=== PATIENT | female | born 1945 | race Caucasian/White ===

== ENCOUNTER 2017-05-09 13:19 | Inpatient (IN) | payer MEDICARE, OTHER ==
[2017-05-09] VITALS (10 sets, daily range): BP systolic 94–137; BP diastolic 54–74; PULSE 70–84; RESP 16–20; TEMP 98.1–98.3; O2SAT 90–98
[~2017-05-09 13:19] MED LIST: CARV12.5 PO; CIPR500T4 PO; COUM10TA PO; ENOX40P SC; LORA10TA PO; PROT40TA PO; RAMI5CAP36 PO
[2017-05-09] MEDS ORDERED: CARV12.5 PO (13:33)
[2017-05-09] MEDS ORDERED: WARF-60 PO (13:33)
[2017-05-09] MEDS ORDERED: ASPI-516 CHEW (13:33)
[2017-05-09] MEDS ORDERED: PANT40TA3 PO (13:33)
[2017-05-09] MEDS ORDERED: RAMI5CAP PO (13:33)
[2017-05-09] MEDS ORDERED: SODIUM CHLORIDE 0.9% FLUSH 10 ML FLUSH IVF PRN (13:45)
[2017-05-09 14:03] LABS: POTASSIUM 4.2 MEQ/L (3.5-5.1)
[2017-05-09 14:07] LABS: MAGNESIUM 1.7 MG/DL (1.5-2.5)
[2017-05-09 14:11] LABS: INTERNATIONAL NORMALIZED RATIO 2.8 RATIO; PROTHROMBIN TIME - PATIENT 27.9 SEC (9.8-11.6)
--- NOTE | 2017-05-09 14:11 | RADRPT ---
EXAM DATE/TIME: 05/09/2017 13:49 [facility] COMPARISON: No previous studies available for comparison. INDICATIONS : Chest pain MEDICAL HISTORY : Congestive heart failure. Hypertension AFib SURGICAL HISTORY : CABG. Pacemaker. ENCOUNTER: Initial ACUITY: 1 day PAIN SCORE: 4/10 LOCATION: Bilateral chest FINDINGS: A single view of the chest demonstrates cardiomegaly with interstitial densities. Increased pulmonary vascularity. There is obscuration left lower lobe. Previous median sternotomy. Left-sided pacemaker with intact leads. The cardiomediastinal contours are unremarkable. Osseous structures are intact. CONCLUSION: 1. Cardiomegaly with minimal interstitial disease. 2. Status post median sternotomy. 3. Left-sided pacemaker Dick Ahuja MD on May 09, 2017 at 14:08 Board Certified Radiologist. This report was verified electronically.
--- NOTE | 2017-05-09 14:22 | PD ---
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 fib status post multiple ablations, currently on Coumadin, pacemaker, previous CVA, previous episodes of splenic bleeding, bleeding complications related to Coumadin, hysterectomy, presents to the ER today because she states that over last few days she has noticed discomfort and swelling in the left neck area, states that her veins feel swollen. She admits she has had some orthopnea and dyspnea on exertion. She denies any new chest pains, fevers, or any other issues. She was seen by Dr. Howell recently, is here because of concerns over the left neck swelling. She denies any trouble talking, swallowing, or other issues. Modifying Factors: None Associated Signs & Symptoms: Left neck swelling, swollen vein, dyspnea on exertion Risk Factors: Extensive cardiac history PFSH Past Medical History Arthritis: Yes Atrial Fibrillation: Yes Anxiety: Yes (D/T ILLNESS HISTORY) Depression: Yes ("SOMETIMES") Cancer: No Cardiovascular Problems: Yes (A FIB, CHF) Chemotherapy: No Chest Pain: No Cerebrovascular Accident: Yes Diabetes: No Endocrine: No Gastrointestinal Disorders: No GERD: Yes (RECENT DX: KNUTSON'S ESOPHAGUS) Glaucoma: No Genitourinary: No Hepatitis: No Hiatal Hernia: No Hypertension: Yes Immune Disorder: No Medical other: Yes (EYE PROBLEMS(RETINA) AFTER FALLING POST OP, KNUTSON'S ESOPHAGUS, GASTRITIS) Musculoskeletal: Yes Neurologic: Yes Psychiatric: No Reproductive: No Respiratory: No Integumentary: No Migraines: Yes (OCCULAR MIGRAINES) Radiation Therapy: No Thyroid Disease: No Past Surgical History Abdominal Surgery: Yes (SPLENECTOMY 1975) AICD: Yes Cardiac Surgery: Yes (HEART VALVE REPLACEMENT 1975,CARDIAC ABLATION, PACER/ DEFIB) Coronary Artery Bypass Graft: Yes (X3 WITH VALVE REPLACEMENTS) Gynecologic Surgery: Yes (HYSTERECTOMY) Hysterectomy: Yes Oral Surgery: Yes (T & A) Pacemaker: Yes Other Surgery: Yes (SPLENECTOMY) Social History Alcohol Use: No (wine with dinner) Tobacco Use: No Substance Use: No Allergies-Medications (Allergen,Severity, Reaction): Coded Allergies: Sulfa (Sulfonamide Antibiotics) (Unverified Allergy, Severe, Shortness of Breath, 05/09/17) Reported Meds & Prescriptions Reported Meds & Active Scripts Active Reported Aspirin 81 Mg Chew 81 Mg CHEW DAILY Coreg (Carvedilol) 12.5 Mg Tab 12.5 Mg PO BID Pantoprazole (Pantoprazole Sodium) 40 Mg Tab 40 Mg PO DAILY Ramipril 5 Mg Cap 5 Mg PO DAILY Warfarin 6 Mg Tab 6 Mg PO DAILY Review of Systems Except as stated in HPI: all other systems reviewed are Neg Physical Exam Narrative GENERAL: Well-developed elderly white female patient currently in mild respiratory distress. Awake and oriented 3. SKIN: Focused skin assessment warm/dry. HEAD: Atraumatic. Normocephalic. EYES: Pupils equal and round. No scleral icterus. No injection or drainage. ENT: No nasal bleeding or discharge. Mucous membranes pink and moist. NECK: Trachea midline. No palpable soft tissue mass or areas of tenderness in the left neck. I do note a significant JVD. CARDIOVASCULAR: Regular rate and rhythm. No murmur appreciated. RESPIRATORY: No accessory muscle use. Clear to auscultation. Breath sounds equal bilaterally. GASTROINTESTINAL: Abdomen soft, non-tender, nondistended. Hepatic and splenic margins not palpable. MUSCULOSKELETAL: No obvious deformities. No clubbing. No cyanosis. No edema. NEUROLOGICAL: Awake and alert. No obvious cranial nerve deficits. Motor grossly within normal limits. Normal speech. PSYCHIATRIC: Appropriate mood and affect; insight and judgment normal. Data Data Last Documented VS Vital Signs Date Time Temp Pulse Resp B/P (MAP) Pulse Ox O2 Delivery O2 Flow Rate FiO2 05/09/17 14:53 70 20 98/62 (74) 96 05/09/17 14:01 2.00 05/09/17 13:47 Nasal Cannula 05/09/17 13:28 98.1 Orders Orders Electrocardiogram (05/09/17 13:45) Basic Metabolic Panel (Bmp) (05/09/17 13:45) B-Type Natriuretic Peptide (05/09/17 13:45) Ckmb (Isoenzyme) Profile (05/09/17 13:45) Complete Blood Count With Diff (05/09/17 13:45) Magnesium (Mg) (05/09/17 13:45) Prothrombin Time / Inr (Pt) (05/09/17 13:45) Act Partial Throm Time (Ptt) (05/09/17 13:45) Troponin I (05/09/17 13:45) Chest, Single Ap (05/09/17 13:45) Ecg Monitoring (05/09/17 13:45) Bilateral Bp Monitoring (05/09/17 13:45) Iv Access Insert/Monitor (05/09/17 13:45) Oximetry (05/09/17 13:45) Oxygen Administration (05/09/17 13:45) Sodium Chloride 0.9% Flush (Ns Flush) (05/09/17 13:45) Us Soft Tissue Neck (05/09/17 ) Furosemide Inj (Lasix Inj) (05/09/17 15:15) Labs Laboratory Tests Test 05/09/17 13:45 White Blood Count 4.7 TH/MM3 Red Blood Count 4.50 MIL/MM3 Hemoglobin 14.5 GM/DL Hematocrit 44.3 % Mean Corpuscular Volume 98.3 FL Mean Corpuscular Hemoglobin 32.3 PG Mean Corpuscular Hemoglobin Concent 32.8 % Red Cell Distribution Width 14.6 % Platelet Count 138 TH/MM3 Mean Platelet Volume 10.3 FL Neutrophils (%) (Auto) 64.8 % Lymphocytes (%) (Auto) 15.9 % Monocytes (%) (Auto) 16.0 % Eosinophils (%) (Auto) 2.1 % Basophils (%) (Auto) 1.2 % Neutrophils # (Auto) 2.9 TH/MM3 Lymphocytes # (Auto) 0.8 TH/MM3 Monocytes # (Auto) 0.8 TH/MM3 Eosinophils # (Auto) 0.1 TH/MM3 Basophils # (Auto) 0.1 TH/MM3 CBC Comment DIFF FINAL Differential Comment Prothrombin Time 27.9 SEC Prothromb Time International Ratio 2.8 RATIO Activated Partial Thromboplast Time 36.0 SEC Blood Urea Nitrogen 10 MG/DL Creatinine 0.68 MG/DL Random Glucose 137 MG/DL Calcium Level 9.8 MG/DL Magnesium Level 1.7 MG/DL Sodium Level 135 MEQ/L Potassium Level 4.2 MEQ/L Chloride Level 103 MEQ/L Carbon Dioxide Level 25.0 MEQ/L Anion Gap 7 MEQ/L Estimat Glomerular Filtration Rate 85 ML/MIN Total Creatine Kinase 56 U/L Troponin I 0.08 NG/ML B-Type Natriuretic Peptide 2792 PG/ML MDM Medical Decision Making Medical Screen Exam Complete: Yes Emergency Medical Condition: Yes Medical Record Reviewed: Yes Interpretation(s) EKG shows paced rhythm at a rate of 70 bpm with no signs of acute ST-T changes. Laboratory Tests Test 05/09/17 13:45 Platelet Count 138 TH/MM3 (150-450) Monocytes (%) (Auto) 16.0 % (0.0-8.0) Lymphocytes # (Auto) 0.8 TH/MM3 (1.0-4.8) Prothrombin Time 27.9 SEC (9.8-11.6) Activated Partial Thromboplast Time 36.0 SEC (24.3-30.1) Random Glucose 137 MG/DL (74-106) Sodium Level 135 MEQ/L (136-145) Estimat Glomerular Filtration Rate 85 ML/MIN (>89) Troponin I 0.08 NG/ML (0.02-0.05) B-Type Natriuretic Peptide 2792 PG/ML (0-100) Last 24 hours Impressions Chest X-Ray 05/09/17 1345 Signed Impressions: Service Date/Time: Tuesday, May 09, 2017 13:49 - CONCLUSION: 1. Cardiomegaly with minimal interstitial disease. 2. Status post median sternotomy. 3. Left-sided pacemaker Dick Ahuja MD Differential Diagnosis Left neck swelling, dyspnea on exertion: Soft tissue mass versus abscess versus aneurysm versus JVD/CHF Narrative Course Chest x-ray shows some signs of pulmonary edema and BNP is quite elevated. Patient is given Lasix in the ER. An ultrasound was done of the neck which did not show any obvious signs of underlying masses or abscesses. She has quite a significant JVD which is suspect is related to the heart failure. Considering her complicated medical history, my plan would be to treat her and admit her for CHF. Her troponin is mildly elevated as well. Case is discussed with Dr. Veloz for admission. Diagnosis Primary Impression: CHF exacerbation Admitting Information Admitting Physician Requests: Admit Phyllis Avendano MD May 09, 2017 14:22
[2017-05-09 14:27] LABS: AUTOMATED NEUTROPHIL # 2.9 TH/MM3 (1.8-7.7); BASOPHIL # 0.1 TH/MM3 (0-0.2); BASOPHIL % 1.2 % (0.0-2.0); EOSINOPHIL # 0.1 TH/MM3 (0-0.4); EOSINOPHIL % 2.1 % (0.0-4.0); HEMATOCRIT 44.3 % (35.0-46.0); HEMO FLAGS DIFF FINAL; LYMPH % 15.9 % (9.0-44.0); LYMPHOCYTE # 0.8 TH/MM3 (1.0-4.8); MEAN CELL VOLUME 98.3 FL (80.0-100.0); MEAN CORPUSCULAR HEMOGLOBIN 32.3 PG (27.0-34.0); MEAN CORPUSCULAR HGB CONC 32.8 % (32.0-36.0); NEUT % 64.8 % (16.0-70.0); PLATELET COUNT 138 TH/MM3 (150-450); RED CELL DISTRIBUTION WIDTH 14.6 % (11.6-17.2); WHITE BLOOD COUNT 4.7 TH/MM3 (4.0-11.0)
[2017-05-09] MEDS ORDERED: FUROSEMIDE 40 MG/4 ML VIAL IV PUSH ONE (15:15)
--- NOTE | 2017-05-09 15:26 | RADRPT ---
EXAM DATE/TIME: 05/09/2017 14:29 [facility] COMPARISON: No previous studies available for comparison. INDICATIONS : Left neck swelling. MEDICAL HISTORY : Congestive heart failure. Osteoporosis. Arthritis. Bone spurs. CVA. Migraines. Afib. Gastritis. [place] tt's esophagus. htn. scoleosis. clotting problems. shingles. ptsd. anxiety. SURGICAL HISTORY : Tonsillectomy. Pacemaker. CABG. Adenoidectomy. Cardiac ablation. Heart valve replacement. Splenectomy . Hysterectomy. Right hip replacement. Femur with nixon-removed. Blood transfusions. ENCOUNTER: Initial ACUITY: 3 days PAIN SCORE: 0/10 LOCATION: Left neck AREA EVALUATED: Left neck. FINDINGS: MASSES: None. FLUID COLLECTIONS: None. OTHER: Minimal atherosclerotic calcification of the regional vasculature. CONCLUSION: 1. Minimal atherosclerotic calcification of the regional vasculature. 2. Otherwise negative. No mass lesions. Hayes Pace MD on May 09, 2017 at 15:23 Board Certified Radiologist. This report was verified electronically.
--- NOTE | 2017-05-09 17:25 | HHI.HP ---
[facility] Rafael Lockhart MD Admission Diagnosis CHF Diagnoses: Chief Complaint: Neck swelling and head swelling Travel History International Travel<30 Days: No Contact w/Intl Traveler <30 Da: No Traveled to Known Affected Are: No History of Present Illness 72-year-old white female being admitted for possible systolic heart failure and or superior vena cava syndrome. Patient was in her usual state of health until couple weeks ago when she began developing a gradual onset of shortness of breath. This progressed over the weeks and eventually she decided come to the emergency department earlier today when she had difficulty sleeping last night. She reports significant orthopnea and restlessness at night. She says that she noted earlier this week that when she would bend forward for any reason her face would get very red and flushed and she felt that the left side of her neck was getting more and more swollen. She denies any extremity swelling in her legs or her hands which she says she has had in the past due to fluid overload. She denies any chest pain or any nausea vomiting or any fevers or chills. She says she did just finished taking Augmentin yesterday for a suspected urinary tract infection causing flank pain. In the emergency room she was given Lasix patient says she feels significantly better with it is actually almost able to tolerate a flat supine position now. She has a complex past medical history involving multiple heart operations and procedures all stemming from acute bacterial endocarditis secondary to strep throat when she was a child. 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 She takes Coumadin for her mitral valve. Review of Systems Except as stated in HPI: all other systems reviewed are Neg Past Family Social History Past Medical History bacterial endocarditis 2/2 strep throat as a child pulmonary edema low ejection fraction stroke in right eye ocular migraines Past Surgical History mitral valve replacement at least 2x ICD and pacemaker Allergies: Coded Allergies: Sulfa (Sulfonamide Antibiotics) (Unverified Allergy, Severe, Shortness of Breath, 05/09/17) Family History lung cancer in parent Social History use to smoke in her 20s, stopped since then Physical Exam Vital Signs Vital Signs Date Time Temp Pulse Resp B/P (MAP) Pulse Ox O2 Delivery O2 Flow Rate FiO2 05/09/17 17:00 95 Nasal Cannula 2.00 05/09/17 16:07 95 Nasal Cannula 2.00 05/09/17 16:07 70 20 115/68 (84) 95 Nasal Cannula 2.00 05/09/17 14:53 70 20 98/62 (74) 96 05/09/17 14:01 84 20 102/56 (71) 94 2.00 94/54 (67) 05/09/17 13:47 94 05/09/17 13:47 Nasal Cannula 2.00 05/09/17 13:28 98.1 70 20 137/74 (95) 93 Physical Exam VS: Afebrile GENERAL: Elderly white female, who looks young for stated age, in no acute distress SKIN: Warm and dry. EYES: No scleral icterus. No injection or drainage. ENT: No nasal bleeding or discharge. Mucous membranes pink and moist. CARDIOVASCULAR: Regular rate and rhythm. no murmurs. Patient has obvious left- sided JVD. No facial edema at this time in a sitting position. RESPIRATORY: No accessory muscle use. Clear to auscultation with slightly decreased breath sounds in the bases, no overwhelming crackles or rales heard. GASTROINTESTINAL: Abdomen soft, non-tender, nondistended. Extremities: No clubbing, cyanosis, or edema. No obvious deformities. MUSCULOSKELETAL: No obvious deformities. grossly intact ROM with 5/5 strength in upper and lower extremities proximally NEUROLOGICAL: Awake and alert. No obvious cranial nerve deficits. No facial droop nor slurred speech noted. PSYCHIATRIC: Appropriate mood and affect; insight and judgment normal. Laboratory Laboratory Tests Test 05/09/17 13:45 White Blood Count 4.7 Red Blood Count 4.50 Hemoglobin 14.5 Hematocrit 44.3 Mean Corpuscular Volume 98.3 Mean Corpuscular Hemoglobin 32.3 Mean Corpuscular Hemoglobin Concent 32.8 Red Cell Distribution Width 14.6 Platelet Count 138 Mean Platelet Volume 10.3 Neutrophils (%) (Auto) 64.8 Lymphocytes (%) (Auto) 15.9 Monocytes (%) (Auto) 16.0 Eosinophils (%) (Auto) 2.1 Basophils (%) (Auto) 1.2 Neutrophils # (Auto) 2.9 Lymphocytes # (Auto) 0.8 Monocytes # (Auto) 0.8 Eosinophils # (Auto) 0.1 Basophils # (Auto) 0.1 CBC Comment DIFF FINAL Differential Comment Prothrombin Time 27.9 Prothromb Time International Ratio 2.8 Activated Partial Thromboplast Time 36.0 Blood Urea Nitrogen 10 Creatinine 0.68 Random Glucose 137 Calcium Level 9.8 Magnesium Level 1.7 Sodium Level 135 Potassium Level 4.2 Chloride Level 103 Carbon Dioxide Level 25.0 Anion Gap 7 Estimat Glomerular Filtration Rate 85 Total Creatine Kinase 56 Troponin I 0.08 B-Type Natriuretic Peptide 2792 Result Diagram: 05/09/17 1345 05/09/17 1345 Imaging Last Impressions Chest X-Ray 05/09/17 1345 Signed Impressions: Service Date/Time: Tuesday, May 09, 2017 13:49 - CONCLUSION: 1. Cardiomegaly with minimal interstitial disease. 2. Status post median sternotomy. 3. Left-sided pacemaker Dick Ahuja MD Neck Ultrasound 05/09/17 0000 Signed Impressions: Service Date/Time: Tuesday, May 09, 2017 14:29 - CONCLUSION: 1. Minimal atherosclerotic calcification of the regional vasculature. 2. Otherwise negative. No mass lesions. MD Aarti Denney VTE Risk Assessment Tonirini VTE Risk Assessment: Mod/High Risk (score >= 2) Caprini Risk Assessment Model Point Value = 1 Point Value = 2 Point Value = 3 Point Value = 5 Age 41-60 Minor surgery BMI > 25 kg/m2 Swollen legs Varicose veins or History of unexplained or recurrent spontaneous Oral contraceptives or hormone replacement Sepsis (< 1 month) Serious lung disease, including pneumonia (< 1 month) Abnormal pulmonary function Acute myocardial infarction Congestive heart failure (< 1 month) History of inflammatory bowel disease Medical patient at bed rest Age 61-74 Arthroscopic surgery Major open surgery (> 45 min) Laparoscopic surgery (> 45 min) Malignancy Confined to bed (> 72 hours) Immobilizing plaster cast Central venous access Age >= 75 History of VTE Family history of VTE Factor V Leiden Prothrombin [id number] Lupus anticoagulant Anticardiolipin antibodies Elevated serum homocysteine Heparin-induced thrombocytopenia Other congenital or acquired thrombophilia Stroke (< 1 month) Elective arthroplasty Hip, pelvis, or leg fracture Acute spinal cord injury (< 1 month) Prophylaxis Regimen Total Risk Factor Score Risk Level Prophylaxis Regimen 0-1 Low Early ambulation 2 Moderate Order ONE of the following: *Sequential Compression Device (SCD) *Heparin 5000 units SQ BID 3-4 Higher Order ONE of the following medications: *Heparin 5000 units SQ TID *Enoxaparin/Lovenox 40 mg SQ daily (WT < 150 kg, CrCl > 30 mL/min) *Enoxaparin/Lovenox 30 mg SQ daily (WT < 150 kg, CrCl > 10-29 mL/min) *Enoxaparin/Lovenox 30 mg SQ BID (WT < 150 kg, CrCl > 30 mL/min) AND/OR *Sequential Compression Device (SCD) 5 or more Highest Order ONE of the following medications: *Heparin 5000 units SQ TID (Preferred with Epidurals) *Enoxaparin/Lovenox 40 mg SQ daily (WT < 150 kg, CrCl > 30 mL/min) *Enoxaparin/Lovenox 30 mg SQ daily (WT < 150 kg, CrCl > 10-29 mL/min) *Enoxaparin/Lovenox 30 mg SQ BID (WT < 150 kg, CrCl > 30 mL/min) AND *Sequential Compression Device (SCD) Assessment and Plan Assessment and Plan 72-year-old white female with extensive cardiac history being admitted for possible systolic acute heart failure and/or superior vena cava syndrome JVD and shortness of breath - Patient does note significant improvement with Lasix and her dyspnea but her JVD is still persistent. - Feel that her mildly elevated troponin is mainly due to heart strain given the significant JVD and lack of clinical signs suggestive of ACS - We'll continue diuresis with Lasix and start metolazone given that she has an probability of a low ejection fraction; - we will obtain an echocardiogram as well as CT scan of the chest to ensure there is no obstructive mass per recommendations with my discussion with radiology. - Neck ultrasound was unremarkable. - We'll monitor intake and output. Telemetry. Systolic chronic dysfunction - Continue home Coreg, ramipril Artificial heart valves - Continue home warfarin GERD - continue home warfarin DVT prevention warfarin Physician Certification 2 Midnight Certification Type: Admission for Inpatient Services Order for Inpatient Services The services are ordered in accordance with Medicare regulations or non- Medicare payer requirements, as applicable. In the case of services not specified as inpatient-only, they are appropriately provided as inpatient services in accordance with the 2-midnight benchmark. Estimated LOS (days): 2 2 days is the estimated time the patient will need to remain in the hospital, assuming treatment plan goals are met and no additional complications. Post-Hospital Plan: Home Nixon Veloz MD May 09, 2017 17:25
[2017-05-09] MEDS ORDERED: FUROSEMIDE 40 MG TAB PO ONE (17:45)
[2017-05-09] MEDS: POTASSIUM CHLORIDE 10 MEQ CONTROLLED RELEASE TAB PO SCH (18:45)
[2017-05-09] MEDS: CARVEDILOL 12.5 MG TAB PO SCH (19:55)
[2017-05-09] MEDS: METOLAZONE 2.5 MG TAB PO SCH (19:55)
[2017-05-09] MEDS ORDERED: IOHEXOL 350 MG/ML 10 ML VIAL (for RAD DIAG) IVCONTRAST ONE (20:10)
--- NOTE | 2017-05-09 20:21 | RADRPT ---
EXAM DATE/TIME: 05/09/2017 19:58 [facility] COMPARISON: No previous studies available for comparison. INDICATIONS : Discomfort and swelling in the left side of neck area. Evaluate for superior vena cava syndrome. IV CONTRAST: 75 cc Omnipaque 350 (iohexol) IV RADIATION DOSE: 6.20 CTDIvol (mGy) MEDICAL HISTORY : Cerebrovascular disease. Cardiovascular disease Gastritis. [place] esophagus. SURGICAL HISTORY : Pacemaker. Splenectomy.Hysterectomy.Valve replacement. Cardiac ablation. Right hip replacement. ENCOUNTER: Initial ACUITY: 3 days PAIN SCALE: 3/10 LOCATION: chest TECHNIQUE: Volumetric scanning of the chest was performed. Using automated exposure control and adjustment of t he mA and/or kV according to patient size, radiation dose was kept as low as reasonably achievable to obtain optimal diagnostic quality images. DICOM format image data is available electronically for review and comparison. Follow-up recommendations for detected pulmonary nodules are based at a minimum on nodule size and pa tient risk factors according to Fleischner Society Guidelines. FINDINGS: There is a small left-sided pleural effusion and left basilar atelectasis. Remote left rib fractures. Epicardial pacer leads present. Previous median sternotomy. Pacer leads are also present right ventr icle. There is global cardiomegaly with previous mitral valve replacement. Left atrium is significant ly enlarged. Minimal right basal atelectasis. Mild scoliosis. No obstruction or compression of the superior vena cava is identified. No hilar, mediastinal or axill jorgito adenopathy. CONCLUSION: 1. Global cardiomegaly, especially left atrium with prosthetic mitral valve present. Pacer leads as a ruben. 2. Small left-sided pleural effusion. 3. No obstruction or compression of the superior vena cava. Brent Higuera MD on May 09, 2017 at 20:15 Board Certified Radiologist. This report was verified electronically.
[2017-05-10] VITALS (8 sets, daily range): BP systolic 101–113; BP diastolic 55–61; PULSE 70–73; RESP 18–20; TEMP 97.2–98.6; O2SAT 90–93
[2017-05-10 06:49] LABS: BICARBONATE 31.1 MEQ/L (21.0-32.0); POTASSIUM 3.4 MEQ/L (3.5-5.1)
[2017-05-10] MEDS ORDERED: RAMIPRIL 5 MG CAP PO SCH (09:00)
[2017-05-10] MEDS ORDERED: FUROSEMIDE 40 MG/4 ML VIAL IV PUSH SCH (09:00)
[2017-05-10] MEDS ORDERED: ASPIRIN 81 MG CHEW TAB CHEW SCH (09:00)
[2017-05-10] MEDS ORDERED: PANTOPRAZOLE SOD 40 MG DELAYED RELEASE TAB PO SCH (09:00)
[2017-05-10] MEDS: CARVEDILOL 12.5 MG TAB PO SCH (10:49)
[2017-05-10] MEDS: METOLAZONE 2.5 MG TAB PO SCH (10:49)
[2017-05-10] MEDS: POTASSIUM CHLORIDE 10 MEQ CONTROLLED RELEASE TAB PO SCH (10:49)
--- NOTE | 2017-05-10 12:17 | EKG ---
Date Performed: 05/09/2017 Time Performed: 13:57:48 PTAGE: 72 years EK% AV SEQUENTIAL PACING ABNORMAL RHYTHM ECG PREVIOUS TRACING : 12/07/2012 09.44 DOCTOR: Armin Carcamo Interpretating Date/Time 05/10/2017 12:16:35
[2017-05-10] MEDS ORDERED: FURO1TAB60 PO (13:46)
[2017-05-10] MEDS ORDERED: SPIR25TA PO (13:46)
[2017-05-10] MEDS ORDERED: KLOR20TA3 PO (13:46)
--- NOTE | 2017-05-10 13:48 | HHI.PR ---
Subjective Remarks Nursing denies any deterioration since last night. Patient herself says she feels much better, has no short of breath while sleeping, was just a little bit fatigued today from the multiple times she is to get up at night to urinate. Denies any chest pain. Objective Vital Signs Date Time Temp Pulse Resp B/P (MAP) Pulse Ox O2 Delivery O2 Flow Rate FiO2 05/10/17 11:54 97.2 70 20 105/55 (72) 93 05/10/17 11:32 93 05/10/17 08:00 98.0 70 20 107/61 (76) 92 05/10/17 04:00 98.5 71 20 113/56 (75) 90 05/10/17 00:00 98.6 73 18 105/59 (74) 90 05/09/17 23:00 70 05/09/17 20:00 70 05/09/17 20:00 98.3 81 18 114/66 (82) 90 05/09/17 19:21 94 21 05/09/17 17:40 05/09/17 17:27 70 16 112/70 (84) 98 Nasal Cannula 2.00 05/09/17 17:00 95 Nasal Cannula 2.00 05/09/17 16:07 95 Nasal Cannula 2.00 05/09/17 16:07 70 20 115/68 (84) 95 Nasal Cannula 2.00 05/09/17 14:53 70 20 98/62 (74) 96 05/09/17 14:01 84 20 102/56 (71) 94 2.00 94/54 (67) I/O 05/09/17 05/09/17 05/09/17 05/10/17 05/10/17 05/10/17 07:00 15:00 23:00 07:00 15:00 23:00 Intake Total 240 ml Balance 240 ml Intake Oral 240 ml # Voids 3 # Bowel Movements 1 Result Diagram: 05/09/17 1345 05/10/17 0525 Objective Remarks Clear lungs bilaterally No JVD noted today compared to yesterday, no conversive dyspnea, nonlabored breathing, heart sounds regular rate A/P Assessment and Plan JVD - Likely from acute systolic heart failure as CT chest is negative for any obstructive like lesion Dyspnea and orthopnea - Resolved w/ medical management and saturating on RA. Discharge plan - Patient echo showing EF of 20-25% which is likely chronic and depressed EF but she presented with an acute clinical presentation of systolic CHF exacerbation. We are going to discharge her on a new prescription of spironolactone, double dose of her ramipril, potassium supplementation, and Lasix. Patient was extensively counseled on the importance of dosing her Lasix at least once a day and up to twice a day should her symptoms get worse. She was informed that she needed to follow-up with her primary care provider or instructional support technician within a week to have her electrolytes rechecked especially her potassium. Patient denied having any chest pain throughout her entire hospitalization. Patient has met maximum benefit from hospital physician and is clinically stable for discharge. Nixon Veloz MD May 10, 2017 13:48
[2017-05-10] MEDS ORDERED: WARFARIN SOD 6 MG TAB PO SCH (16:00)
--- NOTE | 2017-05-10 16:41 | HHI.DCPOC ---
Discharge Care Plan Diagnosis: (1) Systolic CHF, acute on chronic (2) CHF exacerbation Goals to Promote Your Health * To prevent worsening of your condition and complications * To maintain your health at the optimal level Take your Lasix pill daily; you may take up to 2 pills of Lasix a day if your shortness of breath returns or your neck veins get significantly engorged again. Have your primary care doctor or your data governance consultant check her electrolytes within 1 week since her potassium level will be affected by this. Directions to Meet Your Goals Take your medications as prescribed Follow your dietary instruction Follow activity as directed Keep your appointments as scheduled Take your immunizations and boosters as scheduled If your symptoms worsen call your PCP, if no PCP go to Urgent Care Center or Emergency Room Smoking is Dangerous to Your Health. Avoid second hand smoke Call the 24-hour hour crisis hotline for domestic abuse at Nixon Veloz MD May 10, 2017 16:41
[2017-05-10] MEDS ORDERED: KLOR10TA PO (16:44)
[2017-05-10] MEDS ORDERED: RAMI5CAP PO (16:44)
--- NOTE | 2017-05-11 08:40 | ECHRPT ---
Indication: CONCLUSIONS Left ventricular enlargement. Severe LV dysfunction, EF 20-25%. Normal function of MV prosthesis. No mitral regurgitation. Mild tricuspid regurgitation. Aortic sclerosis without stenosis. BP: 107 / 61 HR: 76 Rhythm: MEASUREMENTS (Male / Female) Normal Values Technical Quality: 2D ECHO LV Diastolic Diameter PLAX 5.7 cm 4.2 - 5.9 / 3.9 - 5.3 cm LV Systolic Diameter PLAX 5.1 cm IVS Diastolic Thickness 1.0 cm 0.6 - 1.0 / 0.6 - 0.9 cm LVPW Diastolic Thickness 1.1 cm 0.6 - 1.0 / 0.6 - 0.9 cm LV Relative Wall Thickness 0.4 LVOT Diameter 1.9 cm LV Ejection Fraction MOD 4C 20.8 % LV Cardiac Index MOD 4C 1903.2 cm/minm LV Ejection Fraction 4C AL 19.7 % LV Cardiac Index 4C AL 1785.2 cm/minm M-MODE Aortic Root Diameter MM 2.5 cm LA Systolic Diameter MM 7.5 cm LA Ao Ratio MM 3.0 AV Cusp Separation MM 1.7 cm DOPPLER AV Peak Velocity 115.0 cm/s AV Peak Gradient 5.3 mmHg LVOT Peak Velocity 101.0 cm/s LVOT Peak Gradient 4.1 mmHg AV Area Cont Eq pk 2.5 cm MV Peak Velocity 156.0 cm/s MV Peak Gradient 9.7 mmHg MV Mean Velocity 104.0 cm/s MV Mean Gradient 5.0 mmHg MV Area PHT 1.9 cm PV Peak Velocity 70.6 cm/s PV Peak Gradient 2.0 mmHg Dio Hernandez MD, FACC Edited by: [employer] Environmental Studies Department Chair (Electronically Signed) Final Date:10 May 2017 15:18 Amended: 11 May 2017 08:39
== END 2017-05-10 17:41 | disposition home or self-care (01) | DRG 293 ==
LOC: PHED 13:19 → PHEDA 15:15 → PH3B 18:04
PROVIDERS: ADMIT Hospitalist; ATTEND Hospitalist
DX: I11.0 Hypertensive heart disease with heart failure (principal); I48.91 Unspecified atrial fibrillation; F32.9 Major depressive disorder, single episode, unspecified; K22.70 Barrett's esophagus without dysplasia; K21.9 Gastro-esophageal reflux disease without esophagitis; I50.23 Acute on chronic systolic (congestive) heart failure; Z95.2 Presence of prosthetic heart valve; M19.90 Unspecified osteoarthritis, unspecified site; F41.9 Anxiety disorder, unspecified; Z96.641 Presence of right artificial hip joint; Z95.0 Presence of cardiac pacemaker; Z79.01 Long term (current) use of anticoagulants; Z87.891 Personal history of nicotine dependence; Z86.73 Personal history of transient ischemic attack (TIA), and cerebral infarction without residual deficits; Z95.1 Presence of aortocoronary bypass graft; Z95.810 Presence of automatic (implantable) cardiac defibrillator
CPT/HCPCS: 71010; 71260; 76536; 80048; 82550; 83735; 83880; 84484; 85025; 85610; 85730; 93005; 93306; J1940; Q9967

== ENCOUNTER 2017-09-04 09:25 | Emergency (ER) | payer MEDICARE, OTHER ==
[~2017-09-04] VITALS: Ht 165.1 cm; Wt 55.2 kg
[~2017-09-04 09:25] MED LIST changes: +ASPI-516 CHEW; -CIPR500T4 PO; -COUM10TA PO; -ENOX40P SC; +FURO1TAB60 PO; +KLOR20TA3 PO; -LORA10TA PO; +PANT40TA3 PO; -PROT40TA PO; +RAMI5CAP PO; -RAMI5CAP36 PO; +SPIR25TA PO; +WARF-60 PO
[2017-09-04 09:29] VITALS: BP 110/81; PULSE 72; RESP 18; TEMP 97.7; O2SAT 94
[2017-09-04] MEDS ORDERED: SODIUM CHLORIDE 0.9% FLUSH 10 ML FLUSH IVF PRN (10:15)
[2017-09-04 10:17] VITALS: BP 109/69; PULSE 70; RESP 18; O2SAT 95
[2017-09-04 10:18] LABS: AUTOMATED NEUTROPHIL # 2.6 TH/MM3 (1.8-7.7); BASOPHIL # 0.1 TH/MM3 (0-0.2); BASOPHIL % 1.3 % (0.0-2.0); EOSINOPHIL # 0.2 TH/MM3 (0-0.4); EOSINOPHIL % 3.4 % (0.0-4.0); HEMATOCRIT 44.7 % (35.0-46.0); HEMOGLOBIN 14.9 GM/DL (11.6-15.3); LYMPH % 19.5 % (9.0-44.0); LYMPHOCYTE # 0.9 TH/MM3 (1.0-4.8); MEAN CELL VOLUME 97.8 FL (80.0-100.0); MEAN CORPUSCULAR HEMOGLOBIN 32.7 PG (27.0-34.0); MEAN CORPUSCULAR HGB CONC 33.5 % (32.0-36.0); MEAN PLATELET VOLUME 9.1 FL (7.0-11.0); MONOCYTE # 0.8 TH/MM3 (0-0.9); NEUT % 58.8 % (16.0-70.0); PLATELET COUNT 105 TH/MM3 (150-450); RED BLOOD COUNT 4.57 MIL/MM3 (4.00-5.30); RED CELL DISTRIBUTION WIDTH 15.1 % (11.6-17.2); WHITE BLOOD COUNT 4.6 TH/MM3 (4.0-11.0)
[2017-09-04 10:30] LABS: CALCIUM 10.1 MG/DL (8.5-10.1)
[2017-09-04 10:31] LABS: BICARBONATE 26.3 MEQ/L (21.0-32.0); MAGNESIUM 1.7 MG/DL (1.5-2.5)
[2017-09-04 10:32] LABS: INTERNATIONAL NORMALIZED RATIO 3.5 RATIO; PROTHROMBIN TIME - PATIENT 35.7 SEC (9.8-11.6)
[2017-09-04 10:34] LABS: CREATININE 0.7 MG/DL (0.50-1.00)
--- NOTE | 2017-09-04 10:37 | RADRPT ---
EXAM DATE/TIME: 09/04/2017 10:17 [place] COMPARISON: CHEST SINGLE AP, May 09, 2017, 13:49. INDICATIONS : Palpitations, short of breath MEDICAL HISTORY : Cardiovascular disease. SURGICAL HISTORY : Pacemaker. valve replacement ENCOUNTER: Initial ACUITY: 1 day PAIN SCORE: 0/10 LOCATION: Bilateral chest FINDINGS: AP upright portable view the chest demonstrates stable appearance of AICD pacer, intact median sterno david wires and marked cardiomegaly. There is cephalization of pulmonary vasculature appear slightly m ore prominent than on prior exam. Stable obscuration of the left hemidiaphragm consistent with chroni c atelectasis or scarring. The lungs are otherwise clear. Osseous structures are intact. CONCLUSION: Cardiomegaly and congestive heart failure.. Angelia Puentes MD on September 04, 2017 at 10:33 Board Certified Radiologist. This report was verified electronically.
--- NOTE | 2017-09-04 10:53 | PD ---
HPI Chief Complaint: Cardiac Complaint Time Seen by Provider: 09:46 Travel History International Travel<30 days: No Contact w/Intl Traveler<30days: No Traveled to known affect area: No History of Present Illness HPI Patient is a 72-year-old female with history of CHF, hypertension, mitral valve replacement currently on Coumadin, presents the emergency room with complaints of palpitations. Patient reports that she has a [employer] pacemaker in place, patient reports that around 4 AM this morning, she began to have palpitations. Patient reports that she had feelings as if she is having a skipped beat earlier today. Patient reports the symptoms lasted for 2 hours and has since resolved. Patient denies any chest pain or shortness of breath, denies any nausea or vomiting. Patient reports that she follows at the [facility] with Dr. Olmstead. Patient reports that she does have good follow-up with a airset caster, endorses that she ate a meal high in sodium last night and is concerned that this may have set off her palpitations. Patient reports complete resolution of symptoms at this time, patient is here to make sure that everything is okay. PFSH Past Medical History Hx Anticoagulant Therapy: Yes () Arthritis: Yes Atrial Fibrillation: Yes Autoimmune Disease: No Anxiety: Yes (D/T ILLNESS HISTORY) Depression: Yes ("SOMETIMES") Heart Rhythm Problems: Yes (afib, pacer dependent) Cardiovascular Problems: Yes Chemotherapy: No Chest Pain: No Congestive Heart Failure: Yes Cerebrovascular Accident: Yes (1975) Diabetes: No Diminished Hearing: No Endocrine: No Gastrointestinal Disorders: No GERD: Yes (RECENT DX: KNUTSON'S ESOPHAGUS) Glaucoma: No Genitourinary: No Hepatitis: No Hiatal Hernia: No Hypertension: Yes Immune Disorder: No Implanted Vascular Access Dvce: Yes Kidney Stones: No Medical other: Yes (EYE PROBLEMS(RETINA) AFTER FALLING POST OP, KNUTSON'S ESOPHAGUS, GASTRITIS) Musculoskeletal: Yes Neurologic: Yes Psychiatric: No Reproductive: No Respiratory: Yes Integumentary: No Migraines: Yes (OCCULAR MIGRAINES) Radiation Therapy: No Renal Failure: No Seizures: No Sickle Cell Disease: No Sleep Apnea: No Thyroid Disease: No Ulcer: No Influenza Vaccination: Yes ?: Not Past Surgical History Abdominal Surgery: Yes (SPLENECTOMY 1975) AICD: Yes Arteriovenous Shunt: No Cardiac Surgery: Yes (HEART VALVE REPLACEMENT 1975,CARDIAC ABLATION, PACER/ DEFIB) Coronary Artery Bypass Graft: Yes (X3 WITH VALVE REPLACEMENTS) Ear Surgery: No Endocrine Surgery: No Eye Surgery: Yes (cataract on right eye removed) Genitourinary Surgery: No Gynecologic Surgery: Yes (HYSTERECTOMY) Hysterectomy: Yes Insulin Pump: No Joint Replacement: Yes (Right hip) Oral Surgery: Yes (T & A) Pacemaker: Yes ([place] [employer] MOBILE SECURITY ARCHITECT-D model n141/serial [id number]) Thoracic Surgery: No Other Surgery: Yes (SPLENECTOMY) Social History Alcohol Use: Yes (wine with dinner) Tobacco Use: No Substance Use: No Allergies-Medications (Allergen,Severity, Reaction): Coded Allergies: Sulfa (Sulfonamide Antibiotics) (Unverified Allergy, Severe, Shortness of Breath, 09/04/17) Reported Meds & Prescriptions Reported Meds & Active Scripts Active Ramipril 5 Mg Cap 5 Mg PO BID Klor-Con M20 (Potassium Chloride Microencaps) 20 Meq Tab 20 Meq PO DAILY Lasix (Furosemide) 40 Mg Tab 40 Mg PO DAILY one tab po daily; if short of breath or increase in weight by 2 lbs/night, then take twice a day Spironolactone 25 Mg Tab 12.5 Mg PO DAILY Reported Aspirin 81 Mg Chew 81 Mg CHEW DAILY Coreg (Carvedilol) 12.5 Mg Tab 12.5 Mg PO BID Pantoprazole (Pantoprazole Sodium) 40 Mg Tab 40 Mg PO DAILY Warfarin 6 Mg Tab 6 Mg PO DAILY Review of Systems General / Constitutional: No: Fever Eyes: No: Visual changes HENT: No: Headaches Cardiovascular: Positive: Palpitations, Irregular Rhythm, No: Chest Pain or Discomfort, Tachycardia Respiratory: No: Shortness of Breath Gastrointestinal: No: Nausea, Vomiting, Abdominal Pain Genitourinary: No: Dysuria Musculoskeletal: No: Pain Skin: No Rash Neurologic: No: Weakness Psychiatric: No: Depression Endocrine: No: Polydipsia Hematologic/Lymphatic: No: Easy Bruising Physical Exam Narrative GENERAL: No acute distress, nontoxic SKIN: Focused skin assessment warm/dry. HEAD: Atraumatic. Normocephalic. EYES: Pupils equal and round. No scleral icterus. No injection or drainage. ENT: No nasal bleeding or discharge. Mucous membranes pink and moist. NECK: Trachea midline. No JVD. CARDIOVASCULAR: Regular rate and rhythm. No murmur appreciated. RESPIRATORY: No accessory muscle use. Clear to auscultation. Breath sounds equal bilaterally. GASTROINTESTINAL: Abdomen soft, non-tender, nondistended. Hepatic and splenic margins not palpable. MUSCULOSKELETAL: No obvious deformities. No clubbing. No cyanosis. No edema. NEUROLOGICAL: Awake and alert. No obvious cranial nerve deficits. Motor grossly within normal limits. Normal speech. PSYCHIATRIC: Anxious mood and affect; insight and judgment normal. Data Data Last Documented VS Vital Signs Date Time Temp Pulse Resp B/P (MAP) Pulse Ox O2 Delivery O2 Flow Rate FiO2 09/04/17 11:43 76 18 117/68 (84) 95 Room Air 09/04/17 11:03 2.00 09/04/17 09:29 97.7 Orders Orders Electrocardiogram (09/04/17 10:04) Basic Metabolic Panel (Bmp) (09/04/17 10:04) B-Type Natriuretic Peptide (09/04/17 10:04) Complete Blood Count With Diff (09/04/17 10:04) Magnesium (Mg) (09/04/17 10:04) Prothrombin Time / Inr (Pt) (09/04/17 10:04) Act Partial Throm Time (Ptt) (09/04/17 10:04) Chest, Single Ap (09/04/17 10:04) Ecg Monitoring (09/04/17 10:04) Iv Access Insert/Monitor (09/04/17 10:04) Oximetry (09/04/17 10:04) Sodium Chloride 0.9% Flush (Ns Flush) (09/04/17 10:15) Furosemide Inj (Lasix Inj) (09/04/17 11:00) Labs Laboratory Tests Test 09/04/17 10:00 White Blood Count 4.6 TH/MM3 Red Blood Count 4.57 MIL/MM3 Hemoglobin 14.9 GM/DL Hematocrit 44.7 % Mean Corpuscular Volume 97.8 FL Mean Corpuscular Hemoglobin 32.7 PG Mean Corpuscular Hemoglobin Concent 33.5 % Red Cell Distribution Width 15.1 % Platelet Count 105 TH/MM3 Mean Platelet Volume 9.1 FL Neutrophils (%) (Auto) 58.8 % Lymphocytes (%) (Auto) 19.5 % Monocytes (%) (Auto) 17.0 % Eosinophils (%) (Auto) 3.4 % Basophils (%) (Auto) 1.3 % Neutrophils # (Auto) 2.6 TH/MM3 Lymphocytes # (Auto) 0.9 TH/MM3 Monocytes # (Auto) 0.8 TH/MM3 Eosinophils # (Auto) 0.2 TH/MM3 Basophils # (Auto) 0.1 TH/MM3 CBC Comment AUTO DIFF Differential Comment AUTO DIFF CONFIRMED Prothrombin Time 35.7 SEC Prothromb Time International Ratio 3.5 RATIO Activated Partial Thromboplast Time 38.8 SEC Blood Urea Nitrogen 15 MG/DL Creatinine 0.70 MG/DL Random Glucose 105 MG/DL Calcium Level 10.1 MG/DL Magnesium Level 1.7 MG/DL Sodium Level 138 MEQ/L Potassium Level 4.3 MEQ/L Chloride Level 104 MEQ/L Carbon Dioxide Level 26.3 MEQ/L Anion Gap 8 MEQ/L Estimat Glomerular Filtration Rate 82 ML/MIN B-Type Natriuretic Peptide 3580 PG/ML MDM Medical Decision Making Medical Screen Exam Complete: Yes Emergency Medical Condition: Yes Medical Record Reviewed: Yes Interpretation(s) EKG at 1016: Paced at 74 bpm Vital Signs Date Time Temp Pulse Resp B/P (MAP) Pulse Ox O2 Delivery O2 Flow Rate FiO2 09/04/17 10:17 70 18 109/69 (82) 95 Nasal Cannula 2.00 09/04/17 09:44 95 Room Air 09/04/17 09:29 97.7 72 18 110/81 (91) 94 Differential Diagnosis PVCs, atrial fibrillation, arrhythmia, electrolyte abnormalities, CHF Narrative Course During the course of the patients emergency department visit, the patients history, examination, and differential diagnosis were reviewed with the patient. The patient was placed on a cardiac sonographer with oximetry and frequent blood pressure monitoring. The patient had an IV access obtained and blood work sent for analysis. The patients laboratory studies were reviewed and remarkable for: Laboratory Tests Test 09/04/17 10:00 White Blood Count 4.6 TH/MM3 (4.0-11.0) Red Blood Count 4.57 MIL/MM3 (4.00-5.30) Hemoglobin 14.9 GM/DL (11.6-15.3) Hematocrit 44.7 % (35.0-46.0) Mean Corpuscular Volume 97.8 FL (80.0-100.0) Mean Corpuscular Hemoglobin 32.7 PG (27.0-34.0) Mean Corpuscular Hemoglobin Concent 33.5 % (32.0-36.0) Red Cell Distribution Width 15.1 % (11.6-17.2) Platelet Count 105 TH/MM3 (150-450) Mean Platelet Volume 9.1 FL (7.0-11.0) Neutrophils (%) (Auto) 58.8 % (16.0-70.0) Lymphocytes (%) (Auto) 19.5 % (9.0-44.0) Monocytes (%) (Auto) 17.0 % (0.0-8.0) Eosinophils (%) (Auto) 3.4 % (0.0-4.0) Basophils (%) (Auto) 1.3 % (0.0-2.0) Neutrophils # (Auto) 2.6 TH/MM3 (1.8-7.7) Lymphocytes # (Auto) 0.9 TH/MM3 (1.0-4.8) Monocytes # (Auto) 0.8 TH/MM3 (0-0.9) Eosinophils # (Auto) 0.2 TH/MM3 (0-0.4) Basophils # (Auto) 0.1 TH/MM3 (0-0.2) CBC Comment AUTO DIFF Prothrombin Time 35.7 SEC (9.8-11.6) Prothromb Time International Ratio 3.5 RATIO Activated Partial Thromboplast Time 38.8 SEC (24.3-30.1) Blood Urea Nitrogen 15 MG/DL (7-18) Creatinine 0.70 MG/DL (0.50-1.00) Random Glucose 105 MG/DL (74-106) Calcium Level 10.1 MG/DL (8.5-10.1) Magnesium Level 1.7 MG/DL (1.5-2.5) Sodium Level 138 MEQ/L (136-145) Potassium Level 4.3 MEQ/L (3.5-5.1) Chloride Level 104 MEQ/L (98-107) Carbon Dioxide Level 26.3 MEQ/L (21.0-32.0) Anion Gap 8 MEQ/L (5-15) Estimat Glomerular Filtration Rate 82 ML/MIN (>89) B-Type Natriuretic Peptide 3580 PG/ML (0-100) Radiology studies were reviewed and remarkable for: Last Impressions Chest X-Ray 09/04/17 1004 Signed Impressions: Service Date/Time: Monday, September 04, 2017 10:17 - CONCLUSION: Cardiomegaly and congestive heart failure.. Angelia Puentes MD Patient reevaluated, patient diuresed after she was given 40 mg of IV Lasix. Overall, patient is feeling much better. Patient will follow her airset caster next week at the [facility]. Signs and symptoms of when to return to the emergency room was reviewed the patient Diagnosis Primary Impression: Acute exacerbation of CHF (congestive heart failure) Qualified Codes: I50.9 - Heart failure, unspecified Patient Instructions: General Instructions Additional Instructions: Please provide patient with a copy of their lab work and studies at discharge* * Please follow up with your primary care doctor in 2-3 days Return to the ER if symptoms worsen or progress Return to the ER as needed Please follow up with your airset caster as scheduled Disposition: 01 DISCHARGE HOME Condition: Stable Gaviota Gimenez DO Sep 04, 2017 10:53
[2017-09-04] MEDS ORDERED: FUROSEMIDE 40 MG/4 ML VIAL IV PUSH ONE (11:00)
[2017-09-04 11:03] VITALS: BP 118/75; PULSE 76; RESP 18; O2SAT 95
[2017-09-04 11:43] VITALS: BP 117/68; PULSE 76; RESP 18; O2SAT 95
--- NOTE | 2017-09-04 16:08 | EKG ---
Date Performed: 09/04/2017 Time Performed: 10:16:10 PTAGE: 72 years EKG: ELECTRONIC ATRIAL PACEMAKER ELECTRONIC VENTRICULAR PACEMAKER OCCASIONAL PVCs Compared to pr evious tracing, the PVCs are new. ABNORMAL RHYTHM ECG PREVIOUS TRACING : 05/09/2017 13.57 DOCTOR: Anibal Vogel Interpretating Date/Time 09/04/2017 16:07:21
== END 2017-09-04 12:00 | disposition home or self-care (01) ==
LOC: PHED 09:25
DX: I11.0 Hypertensive heart disease with heart failure (principal); I50.9 Heart failure, unspecified; I49.3 Ventricular premature depolarization; R94.31 Abnormal electrocardiogram [ECG] [EKG]; I48.91 Unspecified atrial fibrillation; F41.9 Anxiety disorder, unspecified; K21.9 Gastro-esophageal reflux disease without esophagitis; Z86.73 Personal history of transient ischemic attack (TIA), and cerebral infarction without residual deficits; Z95.2 Presence of prosthetic heart valve
CPT/HCPCS: 71045; 80048; 83735; 83880; 85025; 85610; 85730; 93005; 96374; 99285; J1940

== ENCOUNTER 2017-11-03 18:56 | Observation (INO) | payer MEDICARE, OTHER ==
[~2017-11-03] VITALS: Ht 165.1 cm; Wt 53.8 kg
[2017-11-03 19:00] VITALS: BP 122/72; PULSE 70; RESP 18; TEMP 97.4; O2SAT 95
[2017-11-03] MEDS ORDERED: FUROSEMIDE 40 MG/4 ML VIAL IVP ONE (19:15)
[2017-11-03 19:18] VITALS: BP 117/78; PULSE 70; RESP 18; O2SAT 95
--- NOTE | 2017-11-03 19:25 | PD ---
HPI Chief Complaint: Respiratory Symptoms Time Seen by Provider: 19:06 Travel History International Travel<30 days: No Contact w/Intl Traveler<30days: No Traveled to known affect area: No History of Present Illness HPI 72yo F with PMH of CHF EF 22-25% s/p AICD, mitral valve replacement on coumadin presents to the ED with c/o congestion and distension of neck veins for 2 days. Pt follows with cardiology in [facility] and said usually when this happens, she comes to get IV lasix and feels better. Said she feels sob with exertion but that is not really new. Denies any fever, chest pain, n/v, abdominal pain, focal weakness or numbness. PFSH Past Medical History Hx Anticoagulant Therapy: Yes (WARFARIN) Arthritis: Yes Atrial Fibrillation: Yes Autoimmune Disease: No Anxiety: Yes (D/T ILLNESS HISTORY) Depression: Yes ("SOMETIMES") Heart Rhythm Problems: Yes (afib, pacer dependent) Cardiovascular Problems: Yes Chemotherapy: No Chest Pain: No Congestive Heart Failure: Yes Cerebrovascular Accident: Yes Diabetes: No Diminished Hearing: No Endocrine: No Gastrointestinal Disorders: No GERD: Yes (RECENT DX: KNUTSON'S ESOPHAGUS) Glaucoma: No Genitourinary: No Hepatitis: No Hiatal Hernia: No Hypertension: Yes Immune Disorder: No Implanted Vascular Access Dvce: Yes Kidney Stones: No Musculoskeletal: Yes Neurologic: Yes Psychiatric: No Reproductive: No Respiratory: Yes Integumentary: No Migraines: Yes (OCCULAR MIGRAINES) Radiation Therapy: No Renal Failure: No Seizures: No Sickle Cell Disease: No Sleep Apnea: No Thyroid Disease: No Ulcer: No ?: Not Past Surgical History Abdominal Surgery: Yes (SPLENECTOMY 1975) AICD: Yes Arteriovenous Shunt: No Cardiac Surgery: Yes (HEART VALVE REPLACEMENT 1975,CARDIAC ABLATION, PACER/ DEFIB) Coronary Artery Bypass Graft: Yes (X3 WITH VALVE REPLACEMENTS) Ear Surgery: No Endocrine Surgery: No Eye Surgery: Yes (cataract on right eye removed) Genitourinary Surgery: No Gynecologic Surgery: Yes (HYSTERECTOMY) Hysterectomy: Yes Insulin Pump: No Joint Replacement: Yes (Right hip) Oral Surgery: Yes (T & A) Pacemaker: Yes ([employer] BEAMER HELPER-D model n141/serial [id number]) Thoracic Surgery: No Other Surgery: Yes (SPLENECTOMY) Social History Alcohol Use: Yes (wine with dinner) Tobacco Use: No Substance Use: No Allergies-Medications (Allergen,Severity, Reaction): Coded Allergies: Sulfa (Sulfonamide Antibiotics) (Unverified Allergy, Severe, Shortness of Breath, 11/03/17) Reported Meds & Prescriptions Reported Meds & Active Scripts Active Ramipril 5 Mg Cap 5 Mg PO BID Lasix (Furosemide) 40 Mg Tab 40 Mg PO DAILY one tab po daily; if short of breath or increase in weight by 2 lbs/night, then take twice a day Spironolactone 25 Mg Tab 12.5 Mg PO DAILY Reported Aspirin 81 Mg Chew 81 Mg CHEW DAILY Coreg (Carvedilol) 12.5 Mg Tab 12.5 Mg PO BID Pantoprazole (Pantoprazole Sodium) 40 Mg Tab 40 Mg PO DAILY Warfarin 6 Mg Tab 6 Mg PO DAILY Review of Systems Except as stated in HPI: all other systems reviewed are Neg Physical Exam Narrative GENERAL: 72yo F not in distress. SKIN: Focused skin assessment warm/dry. HEAD: Atraumatic. Normocephalic. EYES: Pupils equal and round. No scleral icterus. No injection or drainage. ENT: No nasal bleeding or discharge. Mucous membranes pink and moist. NECK: Trachea midline. + JVD. CARDIOVASCULAR: Regular rate and rhythm. No murmur appreciated. RESPIRATORY: No accessory muscle use. +Bibasilar crackles. GASTROINTESTINAL: Abdomen soft, non-tender, nondistended. MUSCULOSKELETAL: No obvious deformities. No clubbing. No cyanosis. +Trace bilateral lower extremity edema. NEUROLOGICAL: Awake and alert. No obvious cranial nerve deficits. Motor grossly within normal limits. Normal speech. PSYCHIATRIC: Appropriate mood and affect; insight and judgment normal. Data Data Last Documented VS Vital Signs Date Time Temp Pulse Resp B/P (MAP) Pulse Ox O2 Delivery O2 Flow Rate FiO2 11/03/17 20:13 70 18 119/75 (90) 94 Room Air 11/03/17 19:00 97.4 Orders Orders Complete Blood Count With Diff (11/03/17 19:13) Basic Metabolic Panel (Bmp) (11/03/17 19:13) B-Type Natriuretic Peptide (11/03/17 19:13) Act Partial Throm Time (Ptt) (11/03/17 19:13) Prothrombin Time / Inr (Pt) (11/03/17 19:13) Troponin I (11/03/17 19:13) Electrocardiogram (11/03/17 19:13) Chest, Single Ap (11/03/17 19:13) Furosemide Inj (Lasix Inj) (11/03/17 19:15) Place In Observation (11/03/17 ) Vital Signs (Adult) Q4H (11/03/17 20:59) Folder Tier / Telemetry TACOS.Q8H (11/03/17 20:59) Intake + Output TACOS.Q8H (11/03/17 20:59) Diet Heart Healthy (11/04/17 Breakfast) Electrolyte Panel (Lytes) (11/04/17 06:00) Prothrombin Time / Inr (Pt) (11/04/17 06:00) Sodium Chloride 0.9% Flush (Ns Flush) (11/03/17 21:00) Sodium Chloride 0.9% Flush (Ns Flush) (11/03/17 21:00) Furosemide Inj (Lasix Inj) (11/04/17 09:00) Aspirin Chew (Aspirin Chew) (11/04/17 09:00) Carvedilol (Coreg) (11/04/17 09:00) Pantoprazole (Protonix) (11/04/17 09:00) Ramipril (Altace) (11/04/17 09:00) Spironolactone (Aldactone) (11/04/17 09:00) Labs Laboratory Tests Test 11/03/17 19:40 White Blood Count 5.1 TH/MM3 Red Blood Count 4.59 MIL/MM3 Hemoglobin 15.1 GM/DL Hematocrit 44.8 % Mean Corpuscular Volume 97.4 FL Mean Corpuscular Hemoglobin 32.9 PG Mean Corpuscular Hemoglobin Concent 33.8 % Red Cell Distribution Width 15.1 % Platelet Count 113 TH/MM3 Mean Platelet Volume 11.4 FL CBC Comment AUTO DIFF Differential Total Cells Counted 100 Neutrophils % (Manual) 65 % Lymphocytes % 20 % Monocytes % 11 % Eosinophils % 3 % Basophils % 1 % Neutrophils # (Manual) 3.3 TH/MM3 Differential Comment FINAL DIFF MANUAL Platelet Estimate LOW Platelet Morphology Comment NORMAL Ovalocytes 1+ Prothrombin Time 56.8 SEC Prothromb Time International Ratio 5.7 RATIO Activated Partial Thromboplast Time 42.6 SEC Blood Urea Nitrogen 19 MG/DL Creatinine 0.84 MG/DL Random Glucose 101 MG/DL Calcium Level 9.7 MG/DL Sodium Level 135 MEQ/L Potassium Level 3.9 MEQ/L Chloride Level 100 MEQ/L Carbon Dioxide Level 26.6 MEQ/L Anion Gap 8 MEQ/L Estimat Glomerular Filtration Rate 67 ML/MIN Troponin I 0.06 NG/ML B-Type Natriuretic Peptide 4814 PG/ML MDM Medical Decision Making Medical Screen Exam Complete: Yes Emergency Medical Condition: Yes Interpretation(s) EKG: Paced ventricular rhythm. PVCs. No concordance. Differential Diagnosis Fluid overload vs. CHF exacerbation Narrative Course 72yo well appearing female here with c/o more distended neck veins and congestion for a few days. Labs reviewed, no leukocytosis. H/H normal. Thrombocytopenic at baseline. Troponin 0.06 but this is pt's baseline. Pt has no chest pain and sob has not change recently. CXR showed mild perihilar interstitial prominence could represent pulmonary edema. BNP is elevated at 4814. This is more elevated than she has ever been here. INR supertherapeutic at 5.7. She last took coumadin at 12pm today and has no signs of bleeding so will hold tomorrow's dose. Pt given lasix 40mg IV. She is well appearing but feel that she would benefit from more diuresis and overnight observation. Discussed with Dr. Low and accepted to her service. Diagnosis Primary Impression: Systolic CHF, acute on chronic Additional Impression: Supratherapeutic INR Admitting Information Admitting Physician Requests: Observation Stephanie Horne DO Nov 03, 2017 19:25
[2017-11-03 19:56] LABS: HEMATOCRIT 44.8 % (35.0-46.0); HEMOGLOBIN 15.1 GM/DL (11.6-15.3); MEAN CELL VOLUME 97.4 FL (80.0-100.0); MEAN CORPUSCULAR HEMOGLOBIN 32.9 PG (27.0-34.0); MEAN CORPUSCULAR HGB CONC 33.8 % (32.0-36.0); MEAN PLATELET VOLUME 11.4 FL (7.0-11.0); PLATELET COUNT 113 TH/MM3 (150-450); RED BLOOD COUNT 4.59 MIL/MM3 (4.00-5.30); RED CELL DISTRIBUTION WIDTH 15.1 % (11.6-17.2); WHITE BLOOD COUNT 5.1 TH/MM3 (4.0-11.0)
[2017-11-03 19:58] LABS: CALCIUM 9.7 MG/DL (8.5-10.1)
[2017-11-03 19:59] LABS: BICARBONATE 26.6 MEQ/L (21.0-32.0)
[2017-11-03 20:01] LABS: INTERNATIONAL NORMALIZED RATIO 5.7 RATIO; PROTHROMBIN TIME - PATIENT 56.8 SEC (9.8-11.6)
[2017-11-03 20:02] LABS: CREATININE 0.84 MG/DL (0.50-1.00)
--- NOTE | 2017-11-03 20:04 | RADRPT ---
EXAM DATE: 11/03/2017 7:59 PM EDT AGE/SEX: 72 years / Female INDICATIONS: Short of breath. CLINICAL DATA: This is the patient's initial encounter. Patient reports that signs and symptoms have been present for 1 day and indicates a pain score of 0/10. MEDICAL/SURGICAL HISTORY: Congestive heart failure. Pacemaker. Defibrillator. COMPARISON: [facility], CHEST SINGLE AP, 09/04/2017. [facility], CHEST SINGLE AP, 05/09/2017. . FINDINGS: Portable AP view of the chest demonstrate stable enlargement of the cardiac silhouette in this patien t post median sternotomy and valve replacement. Left chest wall cardiac pacing device is present with stable appearance of the leads. EKG lines overlie the patient. There is mild interstitial prominence in a perihilar distribution. No pneumothorax or pleural effusion is identified. Bones demonstrate no acute abnormality. There is levoscoliosis of the lumbar spine. CONCLUSION: Mild perihilar interstitial prominence could represent pulmonary edema. Given the enlarged cardiac si lhouette, a cardiogenic cause should be considered. Electronically signed by: Tommy Martínez MD 11/03/2017 8:03 PM EDT
[2017-11-03 20:06] LABS: TROPONIN I 0.06 NG/ML (0.02-0.05)
[2017-11-03 20:13] VITALS: BP 119/75; PULSE 70; RESP 18; O2SAT 94
[2017-11-03 20:49] LABS: BASOPHILS 1 % (0-2); LYMPHOCYTES 20 % (9-44); MONOCYTES 11 % (0-8); NEUTROPHIL # MANUAL DIFF 3.3 TH/MM3 (1.8-7.7); POLYS (SEG NEUTROPHILS) 65 % (16-70)
[2017-11-03 20:50] LABS: OVALOCYTES 1+ (NORMAL)
[2017-11-03] MEDS ORDERED: SODIUM CHLORIDE 0.9% FLUSH 10 ML FLUSH IV FLUSH PRN (21:00)
[2017-11-03 21:05] VITALS: BP 118/68; PULSE 70; RESP 18; O2SAT 94
[2017-11-03] MEDS: SODIUM CHLORIDE 0.9% FLUSH 10 ML FLUSH IV FLUSH SCH (21:16)
[2017-11-03 22:11] VITALS: BP_SYST 107; BP_SYST 119; BP_DIAS 60; BP_DIAS 69; PULSE 59; PULSE 70; RESP 20; TEMP 97.1; TEMP 99.2; O2SAT 96; O2SAT 97
[2017-11-03 22:18] VITALS: BP 117/74; PULSE 70; RESP 18; O2SAT 93
[2017-11-04] VITALS: BP 108/69; PULSE 77; RESP 20; TEMP 97; O2SAT 98
[2017-11-04 04:00] VITALS: BP 108/66; PULSE 70; RESP 20; TEMP 97.4; O2SAT 92
[2017-11-04 07:58] LABS: INTERNATIONAL NORMALIZED RATIO 5.6 RATIO; PROTHROMBIN TIME - PATIENT 56.4 SEC (9.8-11.6)
[2017-11-04 08:00] LABS: BICARBONATE 30.8 MEQ/L (21.0-32.0)
[2017-11-04] MEDS ORDERED: CALCIUM CARBONATE 500 MG CHEWABLE TAB CHEW PRN (08:00)
[2017-11-04] MEDS ORDERED: DOCUSATE SODIUM 100 MG CAP PO PRN (08:00)
[2017-11-04] MEDS ORDERED: MAGNESIUM HYDROXIDE SUSP 30 ML CUP PO PRN (08:00)
[2017-11-04] MEDS ORDERED: ONDANSETRON ODT 4 MG TAB PO PRN (08:00)
[2017-11-04] MEDS ORDERED: ACETAMINOPHEN 325 MG TAB PO PRN (08:00)
[2017-11-04] MEDS ORDERED: TEMAZEPAM 15 MG CAP PO PRN (08:00)
[2017-11-04] MEDS: SODIUM CHLORIDE 0.9% FLUSH 10 ML FLUSH IV FLUSH SCH (08:39)
[2017-11-04 08:53] VITALS: BP 131/76; PULSE 70; RESP 22; TEMP 97.1; O2SAT 93
[2017-11-04] MEDS ORDERED: FUROSEMIDE 40 MG/4 ML VIAL IVP SCH (09:00)
[2017-11-04] MEDS ORDERED: PANTOPRAZOLE SOD 40 MG DELAYED RELEASE TAB PO SCH (09:00)
[2017-11-04] MEDS ORDERED: RAMIPRIL 5 MG CAP PO SCH (09:00)
[2017-11-04] MEDS ORDERED: CARVEDILOL 12.5 MG TAB PO SCH (09:00)
[2017-11-04] MEDS ORDERED: SPIRONOLACTONE 25 MG TAB PO SCH (09:00)
[2017-11-04] MEDS ORDERED: ASPIRIN 81 MG CHEW TAB CHEW SCH (09:00)
[2017-11-04 12:09] VITALS: BP 104/60; PULSE 70; RESP 19; TEMP 97.6; O2SAT 93
--- NOTE | 2017-11-04 15:45 | HHI.HP ---
[facility] Service [facility] Primary Care Physician Rafael Lockhart MD Admission Diagnosis Acute on chronic CHF exacerbation Diagnoses: (1) Acute on chronic systolic congestive heart failure Diagnosis: Principal (2) Supratherapeutic INR Diagnosis: Principal Chief Complaint: Shortness of breath and neck vein engorgement Travel History International Travel<30 Days: No Contact w/Intl Traveler <30 Da: No Traveled to Known Affected Are: No History of Present Illness Written by Roberto Carlos Davila, acting as scribe for Dr. Dick on 11/04/17 at 15: 44. 72-year-old female with rather complex cardiac history with coronary disease, atrial fibrillation, systolic congestive heart failure, severe cardiomyopathy with ejection fraction 20-25%, biventricular pacemaker with defibrillator, mitral valve replacement, history of bacterial endocarditis who presented to the emergency department because of shortness of breath, engorged neck veins. Patient states that she was in normal state of health until Tuesday of this week. When she started noticing that her neck veins started becoming more prominent. She started having progressive shortness of breath, dyspnea on exertion. She denies any lower extremity edema and she denies any significant weight gain. She indicates that she has had a weight loss from 124 pounds down 114 pounds. Patient indicates that she developed a CHF exacerbation frequently where she starts developing shortness of breath increased neck veins so she goes to the hospital and gets IV Lasix which she gets improved with her respiratory status and she goes home. Patient was just in the emergency department on September 04, 2017 for the same situation during that visit patient was given Lasix 40 mg IV and she felt much better and she was discharged home to follow-up with her adobe layer at [facility]. Patient did go to the emergency department this time and had laboratory studies performed which indicated a BNP of 4814. Chest x-ray was performed which did show mild perihilar interstitial prominence which could represent pulmonary edema. Because of patient's presenting symptoms is recommended by the ER physician the patient be observed in the hospital for further evaluation and management. Laboratory studies also indicate that patient INR was also supratherapeutic at 5.7. Upon discussing with the patient her medication compliance. She states that she does take her medications not as completely prescribed. She is only taken half the Lasix that is prescribed to her. She is concerned about other alternative medications that could cause change in her Coumadin management or CHF. She is also concerned about hormonal abnormalities that could also affect her clinical condition. Presently the patient denies any chest pain. Shortness of breath has improved. Denies any lower extremity edema. No indication of any orthopnea. Review of Systems Respiratory: COMPLAINS OF: Shortness of breath Except as stated in HPI: all other systems reviewed are Neg Past Family Social History Past Medical History Atrial fibrillation Chronic systolic congestive heart failure Cardiomyopathy with ejection fraction 2025% Coronary artery disease History of bacterial endocarditis Anxiety History of tobacco use History of hyperlipidemia Gastritis History of Haines's esophagus Migraine cephalgia Past Surgical History Right hip replacement Biventricular pacemaker and defibrillator insertion Cataract surgery Tonsillectomy Cardiac ablation Splenectomy Hysterectomy Coronary bypass surgery 3 Mitral valve repair Right hammertoe surgery Lumbar laminectomy Reported Medications Reported Meds & Active Scripts Active Ramipril 5 Mg Cap 5 Mg PO BID Lasix (Furosemide) 40 Mg Tab 40 Mg PO DAILY one tab po daily; if short of breath or increase in weight by 2 lbs/night, then take twice a day Spironolactone 25 Mg Tab 12.5 Mg PO DAILY Reported Aspirin 81 Mg Chew 81 Mg CHEW DAILY Coreg (Carvedilol) 12.5 Mg Tab 12.5 Mg PO BID Pantoprazole (Pantoprazole Sodium) 40 Mg Tab 40 Mg PO DAILY Warfarin 6 Mg Tab 6 Mg PO DAILY Allergies: Coded Allergies: Sulfa (Sulfonamide Antibiotics) (Unverified Allergy, Severe, Shortness of Breath, 11/03/17) Family History Reviewed is significant for family history of lung cancer Social History Patient indicates that she smoked in the past, but was not specific of how much or how long. She does drink 1 glass of wine nightly. No indication of any illicit drugs Physical Exam Vital Signs Vital Signs Date Time Temp Pulse Resp B/P (MAP) Pulse Ox O2 Delivery O2 Flow Rate FiO2 11/04/17 12:09 97.6 70 19 104/60 (75) 93 11/04/17 08:53 97.1 70 22 131/76 (94) 93 11/04/17 04:00 97.4 70 20 108/66 (80) 92 6/8/18 00:00 97.0 77 20 108/69 (82) 98 11/03/17 22:19 70 18 93 11/03/17 22:18 70 18 117/74 (88) 93 Room Air 11/03/17 22:11 97.1 70 20 107/69 (82) 96 11/03/17 21:05 70 18 118/68 (85) 94 Room Air 11/03/17 20:13 70 18 119/75 (90) 94 Room Air 11/03/17 19:18 70 18 95 Room Air 11/03/17 19:18 70 18 117/78 (91) 95 Room Air 11/03/17 19:00 97.4 70 18 122/72 (89) 95 Physical Exam GENERAL: Well-developed, well-nourished, in no acute distress. alert and orientated HEENT: Extraocular muscles are intact. Conjunctivae were clear. NECK: Supple without any masses. Trachea midline no deviation. No JVD noted CARDIAC: Regular rhythm, regular rate. S 2/6 ejection murmur, no gallops or rubs. LUNGS: Clear to auscultation bilaterally. No wheeze. No use of accessory muscles on inspiration or expiration. ABDOMEN: Soft, nontender. Nondistended. Bowel sounds heard in all 4 quadrants. No organomegaly or masses. Negative rebound, negative guarding EXTREMITIES: No edema, pulses are equal bilaterally. No cyanosis or clubbing NEUROLOGY: Mood and affect appear appropriate. Cranial nerves II through XII grossly intact. moves all ext w no difficulty Laboratory Laboratory Tests Test 11/03/17 19:40 11/04/17 06:40 White Blood Count 5.1 Red Blood Count 4.59 Hemoglobin 15.1 Hematocrit 44.8 Mean Corpuscular Volume 97.4 Mean Corpuscular Hemoglobin 32.9 Mean Corpuscular Hemoglobin Concent 33.8 Red Cell Distribution Width 15.1 Platelet Count 113 Mean Platelet Volume 11.4 CBC Comment AUTO DIFF Differential Total Cells Counted 100 Neutrophils % (Manual) 65 Lymphocytes % 20 Monocytes % 11 Eosinophils % 3 Basophils % 1 Neutrophils # (Manual) 3.3 Differential Comment FINAL DIFF MANUAL Platelet Estimate LOW Platelet Morphology Comment NORMAL Ovalocytes 1+ Prothrombin Time 56.8 56.4 Prothromb Time International Ratio 5.7 5.6 Activated Partial Thromboplast Time 42.6 Blood Urea Nitrogen 19 Creatinine 0.84 Random Glucose 101 Calcium Level 9.7 Sodium Level 135 138 Potassium Level 3.9 3.7 Chloride Level 100 100 Carbon Dioxide Level 26.6 30.8 Anion Gap 8 7 Estimat Glomerular Filtration Rate 67 Troponin I 0.06 B-Type Natriuretic Peptide 4814 Result Diagram: 11/03/17193911/04/17 0640 Imaging Last Impressions Chest X-Ray 11/03/17 1913 Signed Impressions: CONCLUSION: Mild perihilar interstitial prominence could represent pulmonary edema. Given t he enlarged cardiac silhouette, a cardiogenic cause should be considered. Caprini VTE Risk Assessment Caprini VTE Risk Assessment: Mod/High Risk (score >= 2) Caprini Risk Assessment Model Point Value = 1 Point Value = 2 Point Value = 3 Point Value = 5 Age 41-60 Minor surgery BMI > 25 kg/m2 Swollen legs Varicose veins or History of unexplained or recurrent spontaneous Oral contraceptives or hormone replacement Sepsis (< 1 month) Serious lung disease, including pneumonia (< 1 month) Abnormal pulmonary function Acute myocardial infarction Congestive heart failure (< 1 month) History of inflammatory bowel disease Medical patient at bed rest Age 61-74 Arthroscopic surgery Major open surgery (> 45 min) Laparoscopic surgery (> 45 min) Malignancy Confined to bed (> 72 hours) Immobilizing plaster cast Central venous access Age >= 75 History of VTE Family history of VTE Factor V Leiden Prothrombin [id number] Lupus anticoagulant Anticardiolipin antibodies Elevated serum homocysteine Heparin-induced thrombocytopenia Other congenital or acquired thrombophilia Stroke (< 1 month) Elective arthroplasty Hip, pelvis, or leg fracture Acute spinal cord injury (< 1 month) Prophylaxis Regimen Total Risk Factor Score Risk Level Prophylaxis Regimen 0-1 Low Early ambulation 2 Moderate Order ONE of the following: *Sequential Compression Device (SCD) *Heparin 5000 units SQ BID 3-4 Higher Order ONE of the following medications: *Heparin 5000 units SQ TID *Enoxaparin/Lovenox 40 mg SQ daily (WT < 150 kg, CrCl > 30 mL/min) *Enoxaparin/Lovenox 30 mg SQ daily (WT < 150 kg, CrCl > 10-29 mL/min) *Enoxaparin/Lovenox 30 mg SQ BID (WT < 150 kg, CrCl > 30 mL/min) AND/OR *Sequential Compression Device (SCD) 5 or more Highest Order ONE of the following medications: *Heparin 5000 units SQ TID (Preferred with Epidurals) *Enoxaparin/Lovenox 40 mg SQ daily (WT < 150 kg, CrCl > 30 mL/min) *Enoxaparin/Lovenox 30 mg SQ daily (WT < 150 kg, CrCl > 10-29 mL/min) *Enoxaparin/Lovenox 30 mg SQ BID (WT < 150 kg, CrCl > 30 mL/min) AND *Sequential Compression Device (SCD) Assessment and Plan Assessment and Plan Acute on chronic systolic congestive heart failure -Likely secondary to not complete compliance with her medication she is only taken half the dose of Lasix as prescribed, she does not follow fluid restriction -Patient was started on Lasix 40 mg IV every 12 hours with significant improvement -Patient continued on beta-martha and ANGE inhibitor -Echocardiogram performed less than 6 months ago shows left ventricular enlargement, severe left ventricular dysfunction with ejection fraction 20-25 percent. -Patient counseled on lifestyle modification, medication compliance -It was discussed with the patient to continue taking Lasix 40 mg daily upon discharge. Patient also counseled on fluid restriction of at least 1500 cc daily -Patient was recommended to follow-up with her adobe layer within the week for further recommendations and management Supratherapeutic INR -Patient does monitor her INR on a daily basis at home with her machine -Coumadin has been held at this time -Patient was counseled to continue to hold her Coumadin for at least another 2 days and resume her Coumadin when her INR becomes 3.5 or below Patient's other chronic medical illnesses with atrial fibrillation, coronary disease, cardiomyopathy -Home medications were continued DVT prevention -Patient does have supratherapeutic INR currently Discharge disposition Discharge home in stable condition Activity: Ad elizabeth. Diet: Healthy heart diet Medication per medication reconciliation Follow-up with primary medical doctor in 1 week, adobe layer in 2 weeks This note was transcribed by deborah Davila. I, Dr. Mallory Dick personally performed the history, physical exam, and medical decision making; and confirmed the accuracy of the information in the transcribed note. Authenticated by Dr. Mallory Dick on 11/04/17 at 15:44. Code Status Full code Discussed Condition With patient GiovanniRoberto Carlos Frances LARA Nov 04, 2017 15:44 Mallory Dick MD Nov 04, 2017 15:46
--- NOTE | 2017-11-04 15:57 | HHI.DCPOC ---
Discharge Care Plan Diagnosis: (1) Acute on chronic systolic congestive heart failure (2) Supratherapeutic INR Goals to Promote Your Health * To prevent worsening of your condition and complications * To maintain your health at the optimal level Directions to Meet Your Goals Take your medications as prescribed Follow your dietary instruction Follow activity as directed Keep your appointments as scheduled Take your immunizations and boosters as scheduled If your symptoms worsen call your PCP, if no PCP go to Urgent Care Center or Emergency Room Smoking is Dangerous to Your Health. Avoid second hand smoke Call the 24-hour hour crisis hotline for domestic abuse at Roberto Carlos Davila Nov 04, 2017 15:57
--- NOTE | 2017-11-04 16:05 | EKG ---
Date Performed: 11/03/2017 Time Performed: 19:32:59 PTAGE: 72 years EKG: ELECTRONIC ATRIAL PACEMAKER ELECTRONIC VENTRICULAR PACEMAKER ABNORMAL RHYTHM ECG Since the PREVIOUS TRACING , no significant change noted PREVIOUS TRACIN09/04/2017 10.16 DOCTOR: Nilo Humphrey Interpretating Date/Time 11/04/2017 16:01:01
== END 2017-11-04 16:27 | disposition home or self-care (01) ==
LOC: PHED 18:56 → PHEDA 21:01 → PH3B 22:11
PROVIDERS: ADMIT Hospitalist; ATTEND Hospitalist
DX: I11.0 Hypertensive heart disease with heart failure (principal); I50.23 Acute on chronic systolic (congestive) heart failure; R79.1 Abnormal coagulation profile; I25.10 Atherosclerotic heart disease of native coronary artery without angina pectoris; I42.9 Cardiomyopathy, unspecified; I48.91 Unspecified atrial fibrillation; E78.5 Hyperlipidemia, unspecified; K21.9 Gastro-esophageal reflux disease without esophagitis; D69.6 Thrombocytopenia, unspecified; F41.9 Anxiety disorder, unspecified; F32.9 Major depressive disorder, single episode, unspecified; M19.90 Unspecified osteoarthritis, unspecified site; Z79.899 Other long term (current) drug therapy; Z79.01 Long term (current) use of anticoagulants; Z79.82 Long term (current) use of aspirin; Z95.2 Presence of prosthetic heart valve; Z95.810 Presence of automatic (implantable) cardiac defibrillator; Z87.891 Personal history of nicotine dependence; Z86.73 Personal history of transient ischemic attack (TIA), and cerebral infarction without residual deficits
CPT/HCPCS: 71045; 80048; 80051; 83880; 84484; 85007; 85027; 85610; 85730; 93005; 96374; 96376; 99285; G0378; J1940

== ENCOUNTER 2017-12-13 10:24 | Observation (INO) ==
[2017-12-13 11:30] LABS: Baso # (Auto) 0.1 th/mm3 (0.0-0.2); Baso % (Auto) 1.9 % (0.0-2.0); Eos # (Auto) 0.1 th/mm3 (0.0-0.4); Hematocrit 43.1 % (35.0-46.0); Hemoglobin 14.4 gm/dL (11.6-15.3); Lymph # (Auto) 0.7 th/mm3 (1.0-4.8); Lymph % (Auto) 10.1 % (9.0-44.0); Mean Corpuscular HGB Conc 33.3 % (32.0-36.0); Mean Corpuscular Hemoglobin 33.2 pg (27.0-34.0); Mean Corpuscular Volume 99.7 fL (80.0-100.0); Mean Platelet Volume 10.4 fL (7.0-11.0); Mono # (Auto) 0.9 th/mm3 (0.0-0.9); Mono % (Auto) 14.3 % (0.0-8.0); Neut # (Auto) 4.7 th/mm3 (1.8-7.7); Neut % (Auto) 71.7 % (16.0-70.0); Platelet Count 108 th/mm3 (150-450); Red Blood Count 4.32 mil/mm3 (4.00-5.30); Red Cell Distribution Width 15.8 % (11.6-17.2); White Blood Count 6.5 th/mm3 (4.0-11.0)
[2017-12-13 11:38] LABS: Chloride 99 meq/L (98-107); Potassium 4.1 meq/L (3.5-5.1); Sodium 137 meq/L (136-145)
[2017-12-13 11:42] LABS: Albumin 3.8 g/dL (3.4-5.0); Prothrombin Time 104.4 sec (9.8-11.6)
[2017-12-13 11:43] LABS: Anion Gap 9 meq/L (5-15); Blood Urea Nitrogen 13 mg/dL (7-18); Carbon Dioxide 29.5 meq/L (21.0-32.0); Glucose,Random 103 mg/dL (74-106)
[2017-12-13 11:46] LABS: Alanine Aminotransferase 34 U/L (10-53); Aspartate Aminotransferase 43 U/L (15-37); Glomerular Filtration Rate 66 mL/min (>89)
[2017-12-13 11:47] LABS: INR 10.5 Ratio; Total Protein 7.3 g/dL (6.4-8.2)
--- NOTE | 2017-12-13 11:48 | ED ---
HPI General Chief complaint: Abdominal Pain Stated complaint: INR high x this am Time Seen by Provider: 12/13/17 10:51 Source: patient and RN notes reviewed Mode of arrival: ambulatory History of Present Illness HPI narrative: 72yF presenting with supratherapeutic INR. The patient states that she had a "stomach virus" several days ago in which she had "cramping" LLQ pain which was intermittent, non-radiating, and moderate intensity, associated with multiple loose stools per day. She states that she took Pepto Bismol and 2 days ago began to have black, tarry stools. She says that the diarrhea and abdominal pain has since resolved, but she continues to have nausea and decreased appetite. She checked her INR at home this morning and found it to be >9, so she came to the ED for evaluation. She takes coumadin for mechanical heart valve and A fib. Family history non-contributory. Related Data Home Medications Medication Instructions Recorded Confirmed furosemide 40 mg PO DAILY 12/13/17 12/13/17 hydrocodone-acetaminophen 1 tab PO Q4-6H PRN 12/13/17 12/13/17 pantoprazole 40 mg PO DAILY 12/13/17 12/13/17 ramipril 5 mg PO DAILY 12/13/17 12/13/17 spironolactone 25 mg PO DAILY 12/13/17 12/13/17 warfarin [Coumadin] 6 mg PO DAILY 12/13/17 12/13/17 Allergies Allergy/AdvReac Type Severity Reaction Status Date / Time Sulfa (Sulfonamide Allergy Severe Shortness Verified 12/13/17 11:51 Antibiotics) of Breath Review of Systems Except as stated in HPI: all other systems reviewed are negative Constitutional Denies fever(s) Eyes Denies blurry vision ENT Denies nasal congestion Cardiovascular Denies chest pain Respiratory Denies cough Gastrointestinal Reports diarrhea and Reports nausea Genitourinary Denies dysuria Musculoskeletal Denies back pain Neurologic Denies confusion Psychiatric Denies confusion PMFSH History History Provided By: Patient Medical History Medical History Atrial fibrillation (Acute) Back pain (Acute) CHF (congestive heart failure) (Acute) GERD (gastroesophageal reflux disease) (Acute) Hx of hysterectomy (Acute) Metal bone fixation hardware in place (Acute) Presence of orthopedic joint implant (Acute) Surgical History Surgical History AICD (automatic cardioverter/defibrillator) present (Acute) History of back surgery (Acute) History of total left knee replacement (TKR) (Acute) Hx of CABG (Acute) Hx of heart valve replacement with mechanical valve (Acute) Hx of heart valve replacement with porcine valve (Acute) Hx of joint replacement (Acute) Hx of tonsillectomy (Acute) S/P splenectomy (Acute) Social History Social History Second Hand Smoke Exposure: No Smoking Status: Former smoker Tobacco Type: Cigarettes How Often Do You Have a Drink Containing Alcohol: 2 to 4 times a month Immunization History Tetanus Immunization: >5 Years Hx Influenza Vaccine This Season: Yes Exam Const General: healthy appearing and no acute distress HENMT Head: normocephalic and atraumatic Face and sinus: normal facial exam Eyes General: appearance normal, both eyes and all related structures Pupils: PERRL Chest Chest: normal inspection of the chest Resp Effort & Inspection: normal respiratory effort Auscultation: no rhonchi and no wheezes Cardio Rate: regular rate Rhythm: regular rhythm GI Inspection: non-distended Palpation: soft and nontender Other: Non-thrombosed external hemorrhoid noted at 7:00 position, no active bleeding, no fissures noted; stool black, guaiac positive Skin General: no rashes or lesions noted Neuro General: alert, awake, oriented x3 and no focal motor deficits Psych Affect: normal affect Procedures Hemaprompt Stool Procedural Steps Taken: specimen placed in appropriate test area, developer placed on specimen and control areas and controls appropriately positive and negative Hemaprompt Stool Result: positive Course Initial Documented Vital Signs Temperature 98.0 F 12/13/17 10:24 Pulse Rate 70 12/13/17 10:24 Respiratory Rate 16 12/13/17 10:24 Blood Pressure 94/52 L 12/13/17 10:24 Pulse Oximetry 94 L 12/13/17 10:24 Last Documented Vital Signs Temperature 98.0 F 12/13/17 10:24 Pulse Rate 73 12/13/17 13:12 Respiratory Rate 16 12/13/17 13:12 Blood Pressure 105/68 12/13/17 13:12 Pulse Oximetry 95 12/13/17 13:12 Medical Decision Making [facility] Narrative Medical decision making narrative: Assessment: 72yF presenting with supratherapeutic INR and guaiac (+) stools Plan: Labs, including type and screen CT abd/ pelvis Reassess Addendum: Patient's workup reveals INR >10, H/H 14.4/43.1, otherwise no significant abnormalities. CT scan shows diverticulosis. This patient cannot go home as she has a GI bleed with supratherapeutic INR; she will need INR reversal , recheck, and re-evaluation at frequent intervals. I informed the patient of the results of all labs and imaging as well as plan to keep her in the hospital ; she understands and agrees. Case discussed with Dr. Kinney of the internal medicine team. Differential Diagnosis Differential Diagnosis: Differential diagnosis includes, but is not limited to: colitis, diverticulitis/ diverticulosis, AVM, mass, coagulopathy, anemia Lab Data Result diagrams: 12/13/17 11:15 12/13/17 11:15 Lab Results 12/13/17 12/13/17 12/13/17 Range/Units 11:15 11:15 11:15 CBC w Diff Slide review pending WBC 6.5 (4.0-11.0) th/mm3 RBC 4.32 (4.00-5.30) mil/mm3 Hgb 14.4 (11.6-15.3) gm/dL Hct 43.1 (35.0-46.0) % MCV 99.7 (80.0-100.0) fL MCH 33.2 (27.0-34.0) pg MCHC 33.3 (32.0-36.0) % RDW 15.8 (11.6-17.2) % Plt Count 108 L (150-450) th/mm3 MPV 10.4 (7.0-11.0) fL Neut % (Auto) 71.7 H (16.0-70.0) % Lymph % (Auto) 10.1 (9.0-44.0) % [place] % (Auto) 14.3 H (0.0-8.0) % Eos % (Auto) 2.0 (0.0-4.0) % Baso % (Auto) 1.9 (0.0-2.0) % Neut # (Auto) 4.7 (1.8-7.7) th/mm3 Lymph # (Auto) 0.7 L (1.0-4.8) th/mm3 [place] # (Auto) 0.9 (0.0-0.9) th/mm3 Eos # (Auto) 0.1 (0.0-0.4) th/mm3 Baso # (Auto) 0.1 (0.0-0.2) th/mm3 WBC Differential . Diff Scan Auto diff confirmed Differential Comment . Platelet Estimate Low L (Normal) Platelet Morphology Normal (Normal) PT 104.4 H (9.8-11.6) sec INR 10.5 H* Ratio Sodium 137 (136-145) meq/L Potassium 4.1 (3.5-5.1) meq/L Chloride 99 (98-107) meq/L Carbon Dioxide 29.5 (21.0-32.0) meq/L Anion Gap 9 (5-15) meq/L BUN 13 (7-18) mg/dL Creatinine 0.85 (0.50-1.00) mg/dL Estimated GFR 66 L (>89) mL/min Random Glucose 103 (74-106) mg/dL Calcium 10.0 (8.5-10.1) mg/dL Total Bilirubin 1.5 H (0.2-1.0) mg/dL AST 43 H (15-37) U/L ALT 34 (10-53) U/L Alkaline Phosphatase 124 H (45-117) U/L Total Protein 7.3 (6.4-8.2) g/dL Albumin 3.8 (3.4-5.0) g/dL Imaging Data Radiologist's impression: Abdomen/Pelvis CT 12/13/17 12:56 CONCLUSION: Colonic diverticuli, tiny left pleural effusion and chronic 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 Discharge Plan Physicians Team ED Provider: Nae Carlson Primary Care Provider: Rafael Lockhart Rxs /Orders / Referrals /Forms Prescriptions: No Action warfarin [Coumadin] 6 mg Tablet 6 mg PO DAILY RF: 0 ramipril 5 mg Capsule 5 mg PO DAILY RF: 0 furosemide 40 mg Tablet 40 mg PO DAILY RF: 0 hydrocodone-acetaminophen 5-325 mg Tablet 1 tab PO Q4-6H PRN (Reason: Pain) RF: 0 spironolactone 25 mg Tablet 25 mg PO DAILY RF: 0 pantoprazole [address] For Susp In Packet 40 mg PO DAILY RF: 0 Discharge Interventions Interventions: Vital Signs Last Done: 12/13/17 13:12 Status ED Status: With Doctor
[2017-12-13 11:49] LABS: Alkaline Phosphatase 124 U/L (45-117)
[2017-12-13] MEDS ORDERED: Sodium Chlor 0.9% Inj 250 ML IV.SIG SCH (12:00)
[2017-12-13 12:46] LABS: Platelet Morphology Normal (Normal)
--- NOTE | 2017-12-13 13:18 | CT ---
EXAM DATE: 12/13/2017 1:08 PM EDT AGE/SEX: 72 years / Female INDICATIONS: Diffuse abdominal pain with nausea, vomiting and black stool. Elevated INR. CLINICAL DATA: This is the patient's initial encounter. Patient reports that signs and symptoms have been present for 3 days and indicates a pain score of 2/10. MEDICAL/SURGICAL HISTORY: Congestive heart failure. Gastroesophageal reflux disease. Cardiova scular disease. Atrial fibrillation. Hysterectomy. CABG. Splenectomy. AICD. Back surgery. Heart valve repair. RADIATION DOSE: 5.83 CTDI (mGy) COMPARISON: POI, CT ABDOMEN AND PELVIS W AND W/O CONTRAST, 02/13/2013. . TECHNIQUE: Multiple contiguous axial images were obtained through the abdomen. Images were obtained using multiple row detector helical technique. Using automated exposure control and adjustment of the mA and/or kV according to patient size, radiation dose was kept as low as reasonably achievable to o btain optimal diagnostic quality images. DICOM format image data is available electronically for rev iew and comparison. FINDINGS: Abdomen CT: The liver, pancreas, kidneys, adrenals are unremarkable. The patient is status post splenectomy. Ther e is a well-defined round masslike area left upper quadrant measures 4.9 cm probably a degenerated sp lenic nodule. There is no evidence for any appreciable pathological adenopathy, free fluid, or bowel obstruction. Tiny left pleural effusion is seen. There are atherosclerotic calcifications involving the aorta and iliac arteries chronic in nature. Pelvic CT: There is no evidence for mass, abscess formation, or any significant adenopathy within the pelvis. L umbar scoliosis is seen convexity towards the left with significant degenerative change of lower lumb osacral spine and there is also significant arthritis in the left hip joint. Total hip arthroplasty i s seen on the right. There are scattered diverticuli within the colon mainly the sigmoid colon withou t signs of diverticulitis for technique. There is spasm involving the sigmoid colon. CONCLUSION: Colonic diverticuli, tiny left pleural effusion and chronic degenerative changes of the p atient's spine and left hip joint. Electronically signed by: Fawad Loco MD 12/13/2017 1:17 PM EDT
--- NOTE | 2017-12-13 14:54 | P.HP ---
History of Present Illness Primary Care Physician: 72y Fwith a hx of CHF, heart failure, a-fib, GERD, who presented to the ED with supratherapeutic INR. The patient states that she had a "stomach virus" that started 3 days ago in which she had "cramping" LLQ pain which was intermittent, non-radiating, and moderate intensity, associated with multiple loose stools per day, nausea, and vomiting. Pain has subsided. She states that she took Pepto Bismol for the abdominal pain and the following day noticed black , tarry stools. She says that the diarrhea and abdominal pain has since resolved , but she continues to have nausea and decreased appetite. This morning she checked her INR at home this morning and found it to be 8, so she came to the ED for evaluation. She takes coumadin for mechanical heart valve and A fib. Inpatient Certification: I certify that the inpatient services were ordered in accordance with Medicare regulations governing the order. This includes certification that hospital inpatient services are reasonable and necessary and in the case of services not specified as inpatient-only under 42 CFR 419.22(n), that they are appropriately provided as inpatient services in accordance to with the 2-midnight benchmark under 43 CFR 412.3(e) Review of Systems All other systems reviewed negative except as stated in HPI PMFSH - History History Provided By: Patient - Medical History Medical History: Medical History (Last Reviewed 12/13/17 @ 14:44 by Ambrosio Boland) Atrial fibrillation Back pain CHF (congestive heart failure) GERD (gastroesophageal reflux disease) Hx of hysterectomy Metal bone fixation hardware in place Presence of orthopedic joint implant - Surgical History Surgical History: Surgical History (Last Reviewed 12/13/17 @ 11:52 by Nae Carlson DO) AICD (automatic cardioverter/defibrillator) present History of back surgery History of total left knee replacement (TKR) Hx of CABG Hx of heart valve replacement with mechanical valve Hx of heart valve replacement with porcine valve Hx of joint replacement Hx of tonsillectomy S/P splenectomy - Tobacco History Second Hand Smoke Exposure: No Tobacco Use In Past 30 Days: No Smoking Status: Former smoker Tobacco Type: Cigarettes - Alcohol History How Often Do You Have a Drink Containing Alcohol: 2 to 4 times a month - Immunization History Tetanus Immunization: >5 Years Hx Influenza Vaccine This Season: Yes Medications and Allergies Active Medications: Active Medications Sodium Chloride (Ns Inj) 250 mls @ 15 mls/hr IV.SIG ONCE AYDE Stop: 12/14/17 04:39 Allergies Allergy/AdvReac Type Severity Reaction Status Date / Time Sulfa (Sulfonamide Allergy Severe Shortness Verified 12/13/17 11:51 Antibiotics) of Breath Home Medications Medication Instructions Recorded Confirmed Type furosemide 40 mg PO DAILY 12/13/17 12/13/17 History hydrocodone-acetaminophen 1 tab PO Q4-6H PRN 12/13/17 12/13/17 History pantoprazole 40 mg PO DAILY 12/13/17 12/13/17 History ramipril 5 mg PO DAILY 12/13/17 12/13/17 History spironolactone 25 mg PO DAILY 12/13/17 12/13/17 History warfarin [Coumadin] 6 mg PO DAILY 12/13/17 12/13/17 History Exam Vital signs: Vital Signs 12/13/17 10:24 12/13/17 13:12 Temperature 98.0 F Pulse Rate 70 73 Respiratory Rate 16 16 Blood Pressure 94/52 L 105/68 Pulse Oximetry 94 L 95 Intake & Output 12/12/17 12/13/17 12/13/17 18:59 06:59 18:59 Intake Total 51 / 51 Balance 51 / 51 Weight 54 kg Intake: IV 51 / 51 Vitamin K Inj 10 MG In D5W Inj 51 / 51 50 ML @ 102 mls/hr IV.SIG ONCE ONE Rx#:[id number] - Constitutional no acute distress - Routine HEENT Exam Head: Present: normocephalic, atraumatic Eye: Present: EOMI, PERRL, normal accommodation ENT: Present: mucous membranes moist - Routine Neck Exam Present: supple, full ROM. Absent: JVD, carotid bruit - Routine Respiratory Exam Present: crackles. Absent: accessory muscle use - Routine Cardiovascular Exam Present: RRR, S1, S2, murmur Comments: 2-6 holosystolic murmur - Routine Abdominal Exam Present: soft, normoactive bowel sounds - Routine Extremities Exam Absent: cyanosis, clubbing, edema - Routine Skin Exam Present: intact - Routine Neurological Exam Present: alert, oriented X3 Results - Labs CBC & Chem 7: 12/13/17 11:15 12/13/17 11:15 Labs: Laboratory Results - last 24 hr 12/13/17 12/13/17 12/13/17 11:15 11:15 11:15 CBC w Diff Slide review pending WBC 6.5 RBC 4.32 Hgb 14.4 Hct 43.1 MCV 99.7 MCH 33.2 MCHC 33.3 RDW 15.8 Plt Count 108 L MPV 10.4 Neut % (Auto) 71.7 H Lymph % (Auto) 10.1 [place] % (Auto) 14.3 H Eos % (Auto) 2.0 Baso % (Auto) 1.9 Neut # (Auto) 4.7 Lymph # (Auto) 0.7 L [place] # (Auto) 0.9 Eos # (Auto) 0.1 Baso # (Auto) 0.1 WBC Differential . Diff Scan Auto diff confirmed Differential Comment . Platelet Estimate Low L Platelet Morphology Normal PT 104.4 H INR 10.5 H* Sodium 137 Potassium 4.1 Chloride 99 Carbon Dioxide 29.5 Anion Gap 9 BUN 13 Creatinine 0.85 Estimated GFR 66 L Random Glucose 103 Calcium 10.0 Total Bilirubin 1.5 H AST 43 H ALT 34 Alkaline Phosphatase 124 H Total Protein 7.3 Albumin 3.8 Blood Type Blood Bank Comment 12/13/17 12/13/17 11:15 11:53 CBC w Diff WBC RBC Hgb Hct MCV MCH MCHC RDW Plt Count MPV Neut % (Auto) Lymph % (Auto) [place] % (Auto) Eos % (Auto) Baso % (Auto) Neut # (Auto) Lymph # (Auto) [place] # (Auto) Eos # (Auto) Baso # (Auto) WBC Differential Diff Scan Differential Comment Platelet Estimate Platelet Morphology PT INR Sodium Potassium Chloride Carbon Dioxide Anion Gap BUN Creatinine Estimated GFR Random Glucose Calcium Total Bilirubin AST ALT Alkaline Phosphatase Total Protein Albumin Blood Type O Negative Blood Bank Comment - Imaging Impressions Abdomen/Pelvis CT 12/13/17 12:56 CONCLUSION: Colonic diverticuli, tiny left pleural effusion and chronic 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 Caprini VTE Risk Assessment Caprini Risk Assessment Model: Point Value = 1 Point Value = 2 Point Value = 3 Point Value = 5 Age 41-60 Minor surgery BMI > 25 kg/m2 Swollen legs Varicose veins or History of unexplained or recurrent spontaneous Oral contraceptives or hormone replacement Sepsis (< 1 month) Serious lung disease, including pneumonia (< 1 month) Abnormal pulmonary function Acute myocardial infarction Congestive heart failure (< 1 month) History of inflammatory bowel disease Medical patient at bed rest Age 61-74 Arthroscopic surgery Major open surgery (> 45 min) Laparoscopic surgery (> 45 min) Malignancy Confined to bed (> 72 hours) Immobilizing plaster cast Central venous access Age >= 75 History of VTE Family history of VTE Factor V Leiden Prothrombin [id number] Lupus anticoagulant Anticardiolipin antibodies Elevated serum homocysteine Heparin-induced thrombocytopenia Other congenital or acquired thrombophilia Stroke (< 1 month) Elective arthroplasty Hip, pelvis, or leg fracture Acute spinal cord injury (< 1 month) Prophylaxis Regimen: Total Risk Factor Score Risk Level Prophylaxis Regimen 0-1 Low Early ambulation 2 Moderate Order ONE of the following: *Sequential Compression Device (SCD) *Heparin 5000 units SQ BID 3-4 Higher Order ONE of the following medications: *Heparin 5000 units SQ TID *Enoxaparin/Lovenox 40 mg SQ daily (WT < 150 kg, CrCl > 30 mL/min) *Enoxaparin/Lovenox 30 mg SQ daily (WT < 150 kg, CrCl > 10-29 mL/min) *Enoxaparin/Lovenox 30 mg SQ BID (WT < 150 kg, CrCl > 30 mL/min) AND/OR *Sequential Compression Device (SCD) 5 or more Highest Order ONE of the following medications: *Heparin 5000 units SQ TID (Preferred with Epidurals) *Enoxaparin/Lovenox 40 mg SQ daily (WT < 150 kg, CrCl > 30 mL/min) *Enoxaparin/Lovenox 30 mg SQ daily (WT < 150 kg, CrCl > 10-29 mL/min) *Enoxaparin/Lovenox 30 mg SQ BID (WT < 150 kg, CrCl > 30 mL/min) AND *Sequential Compression Device (SCD) Assessment and Plan - Plan Supratherapeutic INR: pts INR level was 10.5. Fresh Frozen Plasma has been initiated GI bleed: pt reports a hx of black tarry stool after taking pepto-bismo FOBT was positive will contact GI for possibility of endoscopy CHF, chronic: pt has a hx of CHF X 10 years with recent exacerbation X 10 months condition is being managed by Dr. Wright, dragger out, in [facility]. consider lasix infusion after FFP fluid restriction continue home medication
[2017-12-13] MEDS ORDERED: Bisacodyl 10 MG Supp RECTAL PRN (16:03)
[2017-12-13] MEDS ORDERED: Temazepam 15 MG Capsule PO PRN (16:03)
--- NOTE | 2017-12-13 16:17 | P.HPIM ---
History of Present Illness Primary Care Physician: Rafael Lockhart MD Chief Complaint: Dark stools, elevated INR History of Present Illness: Patient is a 72-year-old female with a history of a mitral valve replacement and congestive heart failure currently on warfarin. She had several days of diarrhea dyspepsia and was not eating well. Then she developed black stools. She developed diarrhea and took Pepto-Bismol. She noted that stool became black. Family doctor recommend that she keep an eye on it given that she had just taken the Pepto-Bismol. She then took her weekly INR check and noted that her INR was above 8. She came to the emergency room. She is Hemoccult positive on exam in the emergency room and her INR was 10.5. Patient has not had any further dark stools. She notes no bright red blood per rectum no hematemesis. Blood pressure and hemoglobin are stable. Patient is recommended for observation due to gas intestinal bleeding. - Diagnosis (1) Mitral valve replaced (2) GI bleed (3) Supratherapeutic INR (4) CHF (congestive heart failure) Review of Systems All other systems reviewed negative except as stated in HPI Cardiovascular: Reports shortness of breath with activity Gastrointestinal: Reports black, tarry stools, Reports loose stools PMFSH - History History Provided By: Patient - Medical History Medical History: Medical History (Last Reviewed 12/13/17 @ 16:16 by Sandra Kinney MD) Atrial fibrillation Back pain CHF (congestive heart failure) GERD (gastroesophageal reflux disease) Hx of hysterectomy Metal bone fixation hardware in place Presence of orthopedic joint implant - Surgical History Surgical History: Surgical History (Last Reviewed 12/13/17 @ 16:16 by Sandra Kinney MD) AICD (automatic cardioverter/defibrillator) present History of back surgery History of total left knee replacement (TKR) Hx of CABG Hx of heart valve replacement with mechanical valve Hx of heart valve replacement with porcine valve Hx of joint replacement Hx of tonsillectomy S/P splenectomy - Tobacco History Second Hand Smoke Exposure: No Tobacco Use In Past 30 Days: No Smoking Status: Former smoker Tobacco Type: Cigarettes - Alcohol History How Often Do You Have a Drink Containing Alcohol: 4 or more times a week - Substance Use History Substance History: No History of Abuse - Immunization History Tetanus Immunization: >5 Years Hx Influenza Vaccine This Season: Yes Medications and Allergies Active Medications: Active Medications Hydrocodone Bitart/Acetaminophen ([place] 5/325) 1 tab PO Q4-6H PRN PRN Reason: Pain Bisacodyl (Dulcolax Supp) 10 mg RECTAL DAILY PRN PRN Reason: SEVERE CONSITIPATION Furosemide (Lasix) 40 mg PO DAILY AYDE Furosemide (Lasix Inj) 40 mg IV.PUSH ONCE ONE Stop: 12/13/17 16:31 Sodium Chloride (Ns Inj) 250 mls @ 15 mls/hr IV.SIG ONCE AYDE Stop: 12/14/17 04:39 Lactulose (Lactulose Liq) 30 ml PO DAILY PRN PRN Reason: SEVERE CONSITIPATION Non-Formulary Medication (Pantoprazole [Pantoprazole]) 40 mg PO DAILY AYDE Ramipril (Altace) 5 mg PO DAILY AYDE Spironolactone (Aldactone) 25 mg PO DAILY AYDE Temazepam (Restoril) 15 mg PO HS PRN PRN Reason: INSOMNIA Allergies Allergy/AdvReac Type Severity Reaction Status Date / Time Sulfa (Sulfonamide Allergy Severe Shortness Verified 12/13/17 11:51 Antibiotics) of Breath Home Medications Medication Instructions Recorded Confirmed Type furosemide 40 mg PO DAILY 12/13/17 12/13/17 History hydrocodone-acetaminophen 1 tab PO Q4-6H PRN 12/13/17 12/13/17 History pantoprazole 40 mg PO DAILY 12/13/17 12/13/17 History ramipril 5 mg PO DAILY 12/13/17 12/13/17 History spironolactone 25 mg PO DAILY 12/13/17 12/13/17 History warfarin [Coumadin] 6 mg PO DAILY 12/13/17 12/13/17 History Exam Vital signs: Vital Signs 12/13/17 10:24 12/13/17 13:12 Temperature 98.0 F Pulse Rate 70 73 Respiratory Rate 16 16 Blood Pressure 94/52 L 105/68 Pulse Oximetry 94 L 95 Intake & Output 12/12/17 12/13/17 12/13/17 18:59 06:59 18:59 Intake Total Balance Weight 54 kg Intake: IV Vitamin K Inj 10 MG In D5W Inj 50 ML @ 102 mls/hr IV.SIG ONCE ONE Rx#:[id number] Narrative: GENERAL: Patient calm resting and without complaints, short of breath at rest SKIN: Warm and dry. No rashes or ecchymotic injuries EYES: Pupils equal and round. No scleral icterus. No injection or drainage. ENT: External ear exam normal. No acute nasal bleeding or discharge. Mucous membranes pink and moist. CARDIOVASCULAR: Mechanical S1, S3 RESPIRATORY: Good air flow and effort without accessory muscle use. Clear to auscultation. Breath sounds equal bilaterally. GASTROINTESTINAL: Abdomen soft, non-tender, nondistended. Hepatic and splenic margins not palpable. MUSCULOSKELETAL: Extremities without clubbing, cyanosis, or edema. No obvious deformities. NEUROLOGICAL: Awake and alert. No obvious cranial nerve deficits. Motor grossly within normal limits. Five out of 5 muscle strength in the arms and legs. Normal speech. Results - Labs CBC & Chem 7: 12/13/17 11:15 12/13/17 11:15 Labs: Short CBC 12/13/17 Range/Units 11:15 WBC 6.5 (4.0-11.0) th/mm3 Hgb 14.4 (11.6-15.3) gm/dL Hct 43.1 (35.0-46.0) % Plt Count 108 L (150-450) th/mm3 BMP 12/13/17 11:15 Sodium 137 Potassium 4.1 Chloride 99 Carbon Dioxide 29.5 BUN 13 Creatinine 0.85 Calcium 10.0 Liver Function 12/13/17 Range/Units 11:15 Total Bilirubin 1.5 H (0.2-1.0) mg/dL AST 43 H (15-37) U/L ALT 34 (10-53) U/L Alkaline Phosphatase 124 H (45-117) U/L Albumin 3.8 (3.4-5.0) g/dL - Imaging Impressions Abdomen/Pelvis CT 12/13/17 12:56 CONCLUSION: Colonic diverticuli, tiny left pleural effusion and chronic 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 Caprini VTE Risk Assessment Caprini VTE Risk Assessment: Moderate/High Risk (score >= 2) VTE Pharmacological Exception Reason: Coagulopathy,INR elevated Caprini Risk Assessment Model: Point Value = 1 Point Value = 2 Point Value = 3 Point Value = 5 Age 41-60 Minor surgery BMI > 25 kg/m2 Swollen legs Varicose veins or History of unexplained or recurrent spontaneous Oral contraceptives or hormone replacement Sepsis (< 1 month) Serious lung disease, including pneumonia (< 1 month) Abnormal pulmonary function Acute myocardial infarction Congestive heart failure (< 1 month) History of inflammatory bowel disease Medical patient at bed rest Age 61-74 Arthroscopic surgery Major open surgery (> 45 min) Laparoscopic surgery (> 45 min) Malignancy Confined to bed (> 72 hours) Immobilizing plaster cast Central venous access Age >= 75 History of VTE Family history of VTE Factor V Leiden Prothrombin [id number] Lupus anticoagulant Anticardiolipin antibodies Elevated serum homocysteine Heparin-induced thrombocytopenia Other congenital or acquired thrombophilia Stroke (< 1 month) Elective arthroplasty Hip, pelvis, or leg fracture Acute spinal cord injury (< 1 month) Prophylaxis Regimen: Total Risk Factor Score Risk Level Prophylaxis Regimen 0-1 Low Early ambulation 2 Moderate Order ONE of the following: *Sequential Compression Device (SCD) *Heparin 5000 units SQ BID 3-4 Higher Order ONE of the following medications: *Heparin 5000 units SQ TID *Enoxaparin/Lovenox 40 mg SQ daily (WT < 150 kg, CrCl > 30 mL/min) *Enoxaparin/Lovenox 30 mg SQ daily (WT < 150 kg, CrCl > 10-29 mL/min) *Enoxaparin/Lovenox 30 mg SQ BID (WT < 150 kg, CrCl > 30 mL/min) AND/OR *Sequential Compression Device (SCD) 5 or more Highest Order ONE of the following medications: *Heparin 5000 units SQ TID (Preferred with Epidurals) *Enoxaparin/Lovenox 40 mg SQ daily (WT < 150 kg, CrCl > 30 mL/min) *Enoxaparin/Lovenox 30 mg SQ daily (WT < 150 kg, CrCl > 10-29 mL/min) *Enoxaparin/Lovenox 30 mg SQ BID (WT < 150 kg, CrCl > 30 mL/min) AND *Sequential Compression Device (SCD) Assessment and Plan - Assessment (1) Mitral valve replaced Code(s): Z95.2 - Presence of prosthetic heart valve Status: Acute Plan: Currently on warfarin Stable with [facility] and [place] (2) GI bleed Code(s): K92.2 - Gastrointestinal hemorrhage, unspecified Status: Acute (3) Supratherapeutic INR Code(s): R79.1 - Abnormal coagulation profile Status: Acute Plan: Likely due to recent enteritis and poor oral intake Hold Coumadin Status post vitamin K in the emergency room, FFP pending due to patient's intestinal bleeding issues Repeat INR (4) CHF (congestive heart failure) Code(s): I50.9 - Heart failure, unspecified Status: Acute Plan: We will add IV Lasix given patient's EF of 25% or less, continue home medications and follow clinically Follow-up patient's follow-up is in [place] - Plan Discharge Planning: Pending GI consult, may need to schedule any endoscopy as outpatient due to patient's complicated history H&P: Quality - VTE Deep Vein Thrombosis/Pulmonary Embolism Present on Admission: No
[2017-12-13] MEDS ORDERED: Magnesium Citrate Liq 300 ML Bottle PO ONE (18:30)
--- NOTE | 2017-12-13 19:42 | MB ---
cc: Maribell Verma MD, Beatrice S MD DATE: 12/13/2017 REFERRING PHYSICIAN: Dr. Kinney. REASON FOR CONSULTATION: Abdominal pain, dark tarry stool. HISTORY OF PRESENT ILLNESS: Mrs. Rowland is a very pleasant 72-year-old lady with multiple medical problems who came to the emergency room with complaints of abdominal pain, dark tarry stool and elevated INR. The patient states she had a stomach virus for the last 3 days that she did describe as having abdominal pain in the epigastrium, left lower quadrant and she had multiple loose stools per day, some of them dark. The patient did take Pepto-Bismol. She denies any fever or chills, vomiting. She did have nausea and increased burping. She had a history of colon polyps, due for a colonoscopy. She had an endoscopy many years ago. She has extensive cardiac history. She was followed locally by Dr. Domingo and mostly she is followed up at [facility]. PAST MEDICAL HISTORY: Atrial fibrillation, back pain, CHF, reflux, history of hysterectomy, metal bone fixation, hardware in place, orthopaedic joint implant AICD, back surgery, total left knee replacement, CABG, heart valve replacement with mechanical valve in mitral position and a history of heart valve replacement, porcine valve. Since then replaced with mechanical valve. She has a history of joint replacement, tonsillectomy, status post splenectomy. SOCIAL HISTORY: Former smoker. Denies any drug use. Drinks 2-4 times a month. MEDICATIONS AT HOME: 1. Furosemide. 2. Hydrocodone. 3. Pantoprazole. 4. Ramipril. 5. Spironolactone. 6. Coumadin. ALLERGIES: SULFA AND ANTIBIOTIC. REVIEW OF SYSTEMS: She does have some shortness of breath, denies any weight loss or weight gain, fever or chills. ENT: No alteration of baseline hearing or visual acuity. PULMONARY: Denies any cough, but she does have some shortness of breath. CARDIOVASCULAR: . She does have shortness of breath and mild pedal edema. GASTROINTESTINAL: As above. GENITOURINARY: Denies dysuria or hematuria. HEMATOLOGICAL: No history of anemia or bleeding disorder. SKIN: No alteration of baseline skin lesion. NEUROLOGIC: No history of TIA or CVA kind of symptoms. PHYSICAL EXAMINATION: GENERAL: She is sitting, comfortable in bed at this time, in mild respiratory distress. VITAL SIGNS: Temperature is 98, pulse 70, respirations 16, blood pressure 94/52, saturation 94. HEENT: PERRLA. NECK: No JVD. No lymphadenopathy. CHEST: Clear to auscultation on palpation. CARDIOVASCULAR: S1, S2. No murmur. Mechanical valve click. ABDOMEN: Soft, nontender. Bowel sounds are present. CENTRAL NERVOUS SYSTEM: Awake, alert, oriented x3. No focal signs identified. EXTREMITIES: Minimal pedal edema. LABORATORY DATA: Her white count is 6.5, hemoglobin 14.4, platelets 108. PT/INR 10.5 and 104. Chemistry: Potassium 4.1, total bilirubin 1.5, AST 43, alkaline phosphatase 124. IMAGING STUDIES: The patient had an abdominal CT which showed colonic diverticula, tiny left pleural effusion, status post splenectomy, well defined round mass-like area in left upper quadrant, possible degenerated splenic nodule. Atherosclerosis especially involving the sigmoid colon, otherwise negative. IMPRESSION: Coumadin toxicity currently being reversed with vitamin K and fresh frozen plasma, abdominal pain, nausea, possible peptic ulcer disease, gastritis, dark stools, history of Pepto Bismol ingestion and possibly related to that versus true gastrointestinal bleed in view of Coumadin toxicity. RECOMMENDATION: Monitor H and H closely. Repeat PT/INR in the morning. Protonix. EGD, colonoscopy, timing to be determined based on INR. Echocardiogram. Cardiology consult for cardiology clearance, transferred to [place] for upper endoscopy and colonoscopy as she is high risk for procedure, needs to be done in the main OR. Stool studies. Supportive care, n.p.o. after midnight. Again, time of endoscopy and colonoscopy needs to be determined based on cardiac clearance and INR. I would like to thank Dr. Kinney for referring her to our office for consultation. Further recommendation will depend on the patient's clinical status and the above results. Maribell Verma MD BSB/SA , 07:09 PM , 07:40 PM
[2017-12-13] MEDS: Spironolactone 25 MG Tablet PO SCH (20:42)
[2017-12-14] MEDS ORDERED: Sodium Chlor 0.9% Inj 250 ML IV.SIG SCH (03:00)
[2017-12-14] MEDS ORDERED: Spironolactone 25 MG Tablet PO SCH (09:00)
[2017-12-14 09:02] LABS: Baso # (Auto) 0.1 th/mm3 (0.0-0.2); Baso % (Auto) 1.1 % (0.0-2.0); Eos # (Auto) 0.1 th/mm3 (0.0-0.4); Eos % (Auto) 1.8 % (0.0-4.0); Hematocrit 43.4 % (35.0-46.0); Hemoglobin 14.5 gm/dL (11.6-15.3); Lymph # (Auto) 0.6 th/mm3 (1.0-4.8); Lymph % (Auto) 8.9 % (9.0-44.0); Mean Corpuscular HGB Conc 33.5 % (32.0-36.0); Mean Corpuscular Hemoglobin 32.7 pg (27.0-34.0); Mean Corpuscular Volume 97.7 fL (80.0-100.0); Mean Platelet Volume 11.8 fL (7.0-11.0); Mono # (Auto) 1.1 th/mm3 (0.0-0.9); Mono % (Auto) 18.2 % (0.0-8.0); Neut # (Auto) 4.3 th/mm3 (1.8-7.7); Platelet Count 119 th/mm3 (150-450); Red Blood Count 4.45 mil/mm3 (4.00-5.30); Red Cell Distribution Width 16.2 % (11.6-17.2); White Blood Count 6.2 th/mm3 (4.0-11.0)
[2017-12-14 09:07] LABS: INR 1.6 Ratio
[2017-12-14] MEDS: Spironolactone 25 MG Tablet PO SCH (09:51)
[2017-12-14] MEDS: Furosemide 40 MG Tablet PO SCH (09:52)
[2017-12-14] MEDS: Ramipril 5 MG Capsule PO SCH (09:54)
[2017-12-14] MEDS ORDERED: Heparin 10,000 UNITS/10 ML Vial (for IV use) IV.PUSH STA (10:44)
[2017-12-14] MEDS ORDERED: Lidocaine PF 1% Inj 5 ML Syringe INFILTRATN ONE (12:00)
--- NOTE | 2017-12-14 12:46 | P.PN ---
Subjective Interval history: Nursing denies any deterioration since last night. Patient does vocalize concern about being under coagulated with her history of clotting and having substantial heart operations. Denies any further melena or hematochezia since last night. Denies any nausea. Physical Exam Vital signs: Vital Signs 12/13/17 13:12 12/13/17 18:10 12/13/17 20:28 Temperature 99.3 F 98.1 F Pulse Rate 73 70 70 Respiratory Rate 16 16 16 Blood Pressure 105/68 106/63 112/62 Pulse Oximetry 95 92 L 96 12/13/17 23:13 12/13/17 23:31 12/14/17 00:08 Temperature 98.2 F 98.2 F 97.9 F Pulse Rate 70 70 69 Respiratory Rate 18 18 Blood Pressure 120/63 113/62 Pulse Oximetry 94 L 94 L 12/14/17 08:00 12/14/17 09:43 12/14/17 10:00 Temperature 97.8 F 98.3 F 97.9 F Pulse Rate 70 70 70 Respiratory Rate 16 18 16 Blood Pressure 112/66 120/61 120/69 Pulse Oximetry 92 L 93 L 94 L Intake & Output 12/13/17 12/14/17 12/14/17 18:59 06:59 18:59 Intake Total 51 / 51 280 / 280 225 / 225 Balance 51 / 51 280 / 280 225 / 225 Weight 54 kg 54 kg Intake: IV 51 / 51 Vitamin K Inj 10 MG In D5W Inj 51 / 51 50 ML @ 102 mls/hr IV.SIG ONCE ONE Rx#:[id number] Intake (Blood Product) Amt 280 / 280 225 / 225 Plasma Thawed 5 Day Acda Unit 225 / 225 [id number] Plasma Thawed 5 Day Cp2d Unit 280 / 280 [id number] Other: # Voids 3 Date of Last Bowel Movement 12/12/17 # Bowel Movements 3 Narrative: Abdomen is soft, nondistended Unlabored breathing Good skin color Results - Labs CBC & Chem 7: 12/14/17 06:56 12/13/17 11:15 Laboratory Results - last 24 hr 12/13/17 12/13/17 12/13/17 11:15 11:15 11:53 WBC RBC Hgb Hct MCV MCH MCHC RDW Plt Count MPV Prelim Diff (Auto) Neut % (Auto) Lymph % (Auto) [place] % (Auto) Eos % (Auto) Baso % (Auto) Neut # (Auto) Lymph # (Auto) [place] # (Auto) Eos # (Auto) Baso # (Auto) WBC Differential . Diff Scan Auto diff confirmed Differential Comment Platelet Estimate Low L Platelet Morphology Normal PT INR APTT Blood Type O Negative Antibody Screen Positive H Ab Screen Tube Method Negative Crossmatch See Detail Blood Bank Comment Bld Prod Order Comment 12/14/17 12/14/17 12/14/17 06:33 06:56 06:56 WBC 6.2 RBC 4.45 Hgb 14.5 Hct 43.4 MCV 97.7 MCH 32.7 MCHC 33.5 RDW 16.2 Plt Count 119 L MPV 11.8 H Prelim Diff (Auto) Slide review pending Neut % (Auto) 70.0 Lymph % (Auto) 8.9 L [place] % (Auto) 18.2 H Eos % (Auto) 1.8 Baso % (Auto) 1.1 Neut # (Auto) 4.3 Lymph # (Auto) 0.6 L [place] # (Auto) 1.1 H Eos # (Auto) 0.1 Baso # (Auto) 0.1 WBC Differential . Diff Scan Auto diff confirmed Differential Comment . Platelet Estimate Low L Platelet Morphology Enlarged H PT 16.0 H D INR 1.6 APTT Blood Type Antibody Screen Ab Screen Tube Method Crossmatch Blood Bank Comment Bld Prod Order Comment 12/14/17 12:05 WBC RBC Hgb Hct MCV MCH MCHC RDW Plt Count MPV Prelim Diff (Auto) Neut % (Auto) Lymph % (Auto) [place] % (Auto) Eos % (Auto) Baso % (Auto) Neut # (Auto) Lymph # (Auto) [place] # (Auto) Eos # (Auto) Baso # (Auto) WBC Differential Diff Scan Differential Comment Platelet Estimate Platelet Morphology PT INR APTT 29.9 Blood Type Antibody Screen Ab Screen Tube Method Crossmatch Blood Bank Comment Bld Prod Order Comment - Imaging Impressions Abdomen/Pelvis CT 12/13/17 12:56 CONCLUSION: Colonic diverticuli, tiny left pleural effusion and chronic 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 Assessment and Plan - Assessment (1) Mitral valve replaced Code(s): Z95.2 - Presence of prosthetic heart valve Status: Acute (2) GI bleed Code(s): K92.2 - Gastrointestinal hemorrhage, unspecified Status: Acute (3) Supratherapeutic INR Code(s): R79.1 - Abnormal coagulation profile Status: Acute (4) CHF (congestive heart failure) Code(s): I50.9 - Heart failure, unspecified Status: Acute Plan: We will add IV Lasix given patient's EF of 25% or less, continue home medications and follow clinically Follow-up patient's follow-up is in [place] - Plan Melena -Status post bowel prep, colonoscopy for today, no further bleeding noted. Status post vitamin K and FFP Mitral valve Currently on warfarin, INR currently 1.6. Discuss with gastroenterology who is requesting the patient be held off of any heparin at this time since the colonoscopy is anticipated within the next 4 hours and to resume heparin drip immediately postprocedure stable systolic chronic HF -continue home meds
--- NOTE | 2017-12-14 16:50 | ECHRPT ---
Indication: Chest pain, unspecified CONCLUSIONS The left ventricular systolic function is severely reduced with an estimated ejection fraction in th e range of 20-25%. Mildly dilated left ventricle. There is global left ventricular dysfunction. The right ventricular systoilc function is mildly decreased. Normally functioning mechanical mitral valve prosthesis. Mitral valve mean gradient of 4mmHg at a heart rate of 70. There is moderate tricuspid regurgitation. The estimated pulmonary arterial pressure is 52.4 mmHg. BP: / HR: Rhythm: Other MEASUREMENTS (Male / Female) Normal Values Technical Quality:Good 2D ECHO LV Diastolic Diameter PLAX 5.9 cm 4.2 - 5.9 / 3.9 - 5.3 cm LV Systolic Diameter PLAX 5.4 cm IVS Diastolic Thickness 1.0 cm 0.6 - 1.0 / 0.6 - 0.9 cm LVPW Diastolic Thickness 1.0 cm 0.6 - 1.0 / 0.6 - 0.9 cm LV Relative Wall Thickness 0.3 LVOT Diameter 1.9 cm M-MODE Aortic Root Diameter MM 2.7 cm LA Systolic Diameter MM 5.5 cm LA Ao Ratio MM 2.0 AV Cusp Separation MM 1.6 cm DOPPLER AV Peak Velocity 109.0 cm/s AV Peak Gradient 4.8 mmHg LVOT Peak Velocity 79.0 cm/s LVOT Peak Gradient 2.5 mmHg AV Area Cont Eq pk 2.1 cm MV Peak Velocity 175.0 cm/s MV Peak Gradient 12.3 mmHg MV Mean Velocity 87.9 cm/s MV Mean Gradient 4.0 mmHg Mitral E Point Velocity 162.0 cm/s Mitral A Point Velocity 57.6 cm/s Mitral E to A Ratio 2.8 TR Peak Velocity 325.5 cm/s TR Peak Gradient 42.4 mmHg Right Atrial Pressure 10.0 mmHg Pulmonary Artery Systolic Pressu 52.4 mmHg Right Ventricular Systolic Press 52.4 mmHg PV Peak Velocity 103.0 cm/s PV Peak Gradient 4.2 mmHg FINDINGS LEFT VENTRICLE The left ventricular systolic function is severely reduced with an estimated ejection fraction in th e range of 20-25%. Wall thickness is measured at the upper limits of normal. Mildly dilated left ventricle. There is global left ventricular dysfunction. RIGHT VENTRICLE The right ventricular systoilc function is mildly decreased. The right ventricle is mildly dilated. A pacemaker wire is noted. LEFT ATRIUM The left atrial size is moderately dilated. RIGHT ATRIUM The right atrial size is normal. There is a pacemaker wire present in the right atrial cavity. ATRIAL SEPTUM Normal atrial septal thickness. AORTA The aortic root and proximal ascending aorta are normal in size on limited imaging. MITRAL VALVE Normally functioning mechanical mitral valve prosthesis. No mitral valve stenosis. Trace mitral valve regurgitation. Mitral valve mean gradient of 4mmHg at a heart rate of 70 AORTIC VALVE Trileaflet aortic valve. No aortic valve stenosis or regurgitation. TRICUSPID VALVE There is moderate tricuspid regurgitation. The estimated pulmonary arterial pressure is 52.4 mmHg. Annuloplasty ring noted in the tricuspid position. PULMONARY VALVE No pulmonary valve regurgitation or stenosis. VESSELS The inferior vena cava is normal in size. PERICARDIUM No pericardial effusion. Farhan Paris DO (Electronically Signed) Final Date:14 December 2017 16:50
--- NOTE | 2017-12-14 17:20 | P.PCN ---
Date of procedure: 12/14/17 Pre-op diagnosis: Possible GI bleed, history of Haines's esophagus, nausea, abdominal pain Post-op diagnosis: other Procedure: PROCEDURE PERFORMED EGD with biopsy followed by colonoscopy with biopsy INDICATION FOR PROCEDURE Possible GI bleed, history of Haines's, nausea, abdominal pain PROCEDURE: The procedure, risks and benefits were discussed with Patient/POA and informed consent was obtained. Anesthesia sedated Patient with Diprivan. Patient was placed in the left lateral decubitus position. EGD: The Pentax videoscope was introduced through the oropharynx and advanced to the second portion of the duodenum under direct visualization. Retroflexion was performed in the stomach. FINDINGS: The esophagus there was a short segment of Haines's esophagus in the distal esophagus this was biopsied otherwise the esophagus was unremarkable Stomach there was a small hiatal hernia there was also numerous gastric polyps benign-appearing a few were biopsied for further evaluation most likely secondary to PPI use the antrum appeared to be somewhat erythemic but no ulcerations or erosions The duodenum this was normal Colonoscopy: The Pentax videoscope was introduced through the rectum and advanced to cecum where the ileocecal valve and appendiceal orifice were identified. Retroflexion was performed in the rectum. Colonic prep was fair FINDINGS: Colonic withdrawal time greater than 6 minutes. As the scope was slowly withdrawn colonic mucosa was carefully inspected the ascending colon appeared to be diffusely erythemic with some oozing of blood most likely representing barotrauma although when I got to the descending colon it was actually deflated and it was not distended regardless biopsies were taken for further evaluation otherwise the rest of the colon was unremarkable with normal limits retroflexion in the rectum did reveal moderate size internal hemorrhoids rectal examination otherwise unremarkable ESTIMATED BLOOD LOSS: Minimal SPECIMENS REMOVED: Esophagus, gastric, colon biopsies COMPLICATIONS: None IMPRESSION: Short segment Haines's Small hiatal hernia Numerous gastric polyps benign-appearing Erythemic and descending colon possible barotrauma PLAN: Await biopsies Continue PPI Okay to resume anticoagulation Monitor labs and transfuse as needed Follow-up with GI post discharge EGD in 2 years Colonoscopy in 5 years Anesthesia: SCOTTY Surgeon: Loki Joshi Pathology: other Condition: stable Disposition: floor
[2017-12-14] MEDS: Heparin Drip 25,000 UNIT/250 ML BAG IV.CONT PRN (18:22)
--- NOTE | 2017-12-14 19:54 | MB ---
cc: Eddi Domingo MD, Ashraf S MD Gierbolini,Rafael Veloz,Nixon Ashton MD DATE: 12/14/2017 REASON FOR CONSULTATION: History of congestive heart failure and nonischemic cardiomyopathy, status post mitral valve replacement and now with supratherapeutic INR and GI bleed for endoscopy. HISTORY OF PRESENT ILLNESS: Ms. Rowland is a 72-year-old female with a history of nonischemic cardiomyopathy with severely reduced left ventricular systolic function and history of congestive heart failure in the past, status post Bi-V ICD, status post mitral valve replacement with a mechanical metallic valve in 2009 and tricuspid valve repair. She comes in after "a stomach virus" with diffuse abdominal pains, nausea and vomiting and black stools and a supratherapeutic INR of 10.6. She actually was seen in the office I believe once more than a year and a half ago and has not been following. She has been following at [facility] cardiology, as she was planning to move up there. Her INR has been monitored by her primary physician, Dr. Lockhart. Denies chest pain. She has dyspnea on exertion, but she has not been exerting herself that much lately. Denies palpitations, dizziness or syncope. Denies orthopnea, PND or leg swellings. PAST MEDICAL AND SURGICAL HISTORY: As per history of present illness on top of the followin. Chronic atrial fibrillation. 2. Congestive heart failure. 3. Status post mitral valve replacement as mentioned above. 4. History of polyps status post recent biopsy. 5. History of Haines's esophagitis. 6. Chronic back pains. 7. GERD. 8. Status post hysterectomy. 9. Prior orthopedic surgery. 10. Bi-V ICD. 11. History of total knee replacement. 12. Status post tonsillectomy. 13. Status post splenectomy. SOCIAL HISTORY: Denies smoking or ETOH abuse or recreational drug abuse. She is a former smoker, however. REVIEW OF SYSTEMS: A 12-point system review was unremarkable, except for what is mentioned in the history of present illness. MEDICATIONS AT HOME: 1. Coumadin 6 mg p.o. daily. The last INR about a week ago was 3.1. The one before that was 2.9. She had a recent "stomach virus" when she presented with abdominal pains and black stools. She had checked her INR prior to coming here at home and it was 8.6. Includes the followin. Altace 5 mg p.o. daily. 3. Coreg 12.5 mg p.o. b.i.d. 4. Hydrocodone p.r.n. with pain. 5. Furosemide 40 mg p.o. daily. 6. Spironolactone 25 mg p.o. daily. 7. Pantoprazole 40 mg p.o. daily. ALLERGIES: SULFA AND "CERTAIN ANTIBIOTICS". Please refer to the list in the chart. FAMILY HISTORY: Noncontributory. PHYSICAL EXAMINATION: GENERAL: A 72-year-old lady lying in bed in no apparent distress, alert and oriented x3. She answers questions appropriately. VITAL SIGNS: Blood pressure is 120/60 mmHg, pulse of 70 beats per minute and regular, respiration 14 per minute, afebrile. HEENT: Shows head is normocephalic. Pupils are equal and reactive. Throat is within normal limits. NECK: Supple. No carotid bruits. No thyromegaly. No jugular venous distention noted. LUNGS: Few rhonchi at the bases with somewhat diminished air entry, but overall clear to auscultation and percussion. HEART: S1 and S2 are soft metallic in nature. 1-2/6 systolic murmur at the left sternal border. Faint S4 gallop. ABDOMEN: Lax, nontender. Normoactive bowel sounds. No organomegaly. No masses felt. EXTREMITIES: No clubbing, cyanosis or edema. Pulses 2+ bilaterally and no bruit noted. NEUROLOGIC: Grossly intact with no focal deficit. RECTAL: Deferred. CARDIOLOGY STUDIES: EKG shows pacing rhythm with underlying probably atrial fibrillation with ventricular pacing and capturing. This has not changed from before. She had an echocardiogram on this admission showing again severely reduced left ventricular systolic function with an ejection fraction of 25% and normally functioning mechanical mitral valve and moderate tricuspid regurgitation with moderate pulmonary hypertension (PA systolic pressure of 52 mmHg). ASSESSMENT AND RECOMMENDATIONS: 1. Nonischemic cardiomyopathy, status post Bi-V ICD and history of congestive heart failure. We did discuss switching her ANGE inhibitor to Entresto and she is following with [facility] because also she is moving to [place], which was encouraged. 2. We will restart lower dose of Coreg and watch her blood pressure. She will be started at 6.25 mg p.o. b.i.d. Otherwise, continue on the spironolactone and the Lasix that she is on at the present time. Clinically, she does not look like she is in any distress and no clear evidence of congestive heart failure at the present time. 3. Chronic atrial fibrillation. Resume Coumadin. She is now on IV heparin, which was cleared by GI and Coumadin should be resumed and keep an INR 2.5 to 3.5. Her H and H needs to be monitored as an outpatient as well and she is going to be followed by gastroenterology. 4. Gastrointestinal bleed. Endoscopy results noted. Cleared by gastroenterology for resuming anticoagulation. Resume her Coumadin and watch daily INR, which the medical team is handling at the present time. Her INR today was 1.6 and that is being monitored on a daily basis. Her Coumadin will be resumed at 5 mg daily. 5. Status post mitral valve replacement and tricuspid valve ring repair with moderate tricuspid regurgitation and moderate pulmonary hypertension. 6. Followup in [facility]. Continue current regimen of diuretics including potassium-sparing diuretics. Followup her labs as an outpatient and she is following with [facility] as mentioned above. She can be discharged from the cardiac standpoint and she is to follow with [facility] Cardiology, per her request. I will be more than happy to see her as needed. I did advise her upon discharge to followup her INR on a daily basis and followup with Dr. Lockhart's recommendations to make sure it does not fluctuate as much and to follow it more carefully whenever she has any acute illnesses. She is also aware of SBE prophylaxis and high risk procedures. I thank you for the consultation. MD ROSE Muniz/ , 07:20 PM , 07:53 PM
[2017-12-14] MEDS: Carvedilol 6.25 MG Tablet PO SCH (22:02)
[2017-12-15 04:47] LABS: Activated Partial Thrombo Time 67.9 sec (24.3-30.1); INR 1.4 Ratio; Prothrombin Time 14.4 sec (9.8-11.6)
[2017-12-15] MEDS: Furosemide 40 MG Tablet PO SCH (09:44)
[2017-12-15] MEDS: Carvedilol 6.25 MG Tablet PO SCH ×2 (09:45→21:12)
[2017-12-15] MEDS: Ramipril 5 MG Capsule PO SCH (09:45)
[2017-12-15] MEDS: Spironolactone 25 MG Tablet PO SCH (09:46)
--- NOTE | 2017-12-15 11:56 | P.PNIM ---
Subjective Interval history: Patient reports she is feeling okay today. No further evidence of GI bleeding. Physical Exam Vital signs: Vital Signs 12/14/17 12:00 12/14/17 16:00 12/14/17 17:24 Temperature 98.3 F 98.9 F 97.7 F Pulse Rate 70 70 70 Respiratory Rate 16 16 Blood Pressure 113/60 121/59 L 107/54 L Pulse Oximetry 96 91 L 12/14/17 20:00 12/15/17 00:00 12/15/17 04:00 Temperature 100.3 F H 99.3 F 98.5 F Pulse Rate 70 70 71 Respiratory Rate 18 18 18 Blood Pressure 115/57 L 111/62 95/51 L Pulse Oximetry 92 L 98 92 L 12/15/17 08:00 Temperature 98.2 F Pulse Rate 70 Respiratory Rate 14 Blood Pressure 109/53 L Pulse Oximetry 92 L Intake & Output 12/14/17 12/15/17 12/15/17 18:59 06:59 18:59 Intake Total 465 / 465 250 / 250 Balance 465 / 465 250 / 250 Intake: IV 250 / 250 NS Inj 250 ML @ 15 mls/hr IV. 250 / 250 SIG ONCE AYDE Rx#:[id number] Oral 240 / 240 Intake (Blood Product) Amt 225 / 225 Plasma Thawed 5 Day Acda Unit 225 / 225 [id number] Other: # Voids 6 2 Narrative: GENERAL: Elderly female in no acute distress. CARDIOVASCULAR: Normal rate and regular rhythm RESPIRATORY: Good respiratory efforts. Breath sounds equal and clear to auscultation bilaterally. GASTROINTESTINAL: Abdomen soft, non-tender, non-distended. Normal active bowel sounds MUSCULOSKELETAL: Extremities without cyanosis, or edema. NEURO: Alert & Oriented x4 to person, place, time, situation. Moves all ext x4 PSYCH: Appropriate mood and affect. Results - Labs CBC & Chem 7: 12/14/17 06:56 12/13/17 11:15 Laboratory Results - last 24 hr 12/14/17 12/14/17 12/15/17 12:05 21:54 03:57 PT 14.4 H INR 1.4 APTT 29.9 44.8 H D 67.9 H D Assessment and Plan - Assessment (1) Mitral valve replaced Code(s): Z95.2 - Presence of prosthetic heart valve Status: Acute (2) GI bleed Code(s): K92.2 - Gastrointestinal hemorrhage, unspecified Status: Acute (3) Supratherapeutic INR Code(s): R79.1 - Abnormal coagulation profile Status: Acute (4) CHF (congestive heart failure) Code(s): I50.9 - Heart failure, unspecified Status: Acute - Plan 72-year-old female with: Melena -Patient has been on Warfarin. Status post reversal with vitamin K and FFP -Patient underwent EGD and colonoscopy which revealed short segment Haines's, small hiatal hernia, numerous benign-appearing gastric polyps, erythema in descending colon possible bowel trauma -GI bleeding appears to have resolved. Patient will continue PPI. Outpatient follow-up with GI. Mitral valve replaced: - Needs to be anticoagulated. INR currently subtherapeutic. Continue bridging with Heparin/Coumadin . - Plan to switched to Lovenox/Coumadin tomorrow on discharge. stable systolic chronic HF -continue home meds
--- NOTE | 2017-12-15 15:33 | P.PNGI ---
Subjective Interval history: Pt resting in bed. Denies nausea and vomiting. Reports some abdominal bloating that began after GI procedures yesterday. <Vivienne Quiros - Last Filed: 12/15/17 15:27> Physical Exam Vital signs: Vital Signs 12/14/17 16:00 12/14/17 17:24 12/14/17 20:00 Temperature 98.9 F 97.7 F 100.3 F H Pulse Rate 70 70 70 Respiratory Rate 16 18 Blood Pressure 121/59 L 107/54 L 115/57 L Pulse Oximetry 91 L 92 L 12/15/17 00:00 12/15/17 04:00 12/15/17 08:00 Temperature 99.3 F 98.5 F 98.2 F Pulse Rate 70 71 70 Respiratory Rate 18 18 14 Blood Pressure 111/62 95/51 L 109/53 L Pulse Oximetry 98 92 L 92 L 12/15/17 12:00 Temperature 98.2 F Pulse Rate 69 Respiratory Rate 16 Blood Pressure 94/53 L Pulse Oximetry 92 L Intake & Output 12/14/17 12/15/17 12/15/17 18:59 06:59 18:59 Intake Total 465 / 465 250 / 250 Balance 465 / 465 250 / 250 Intake: IV 250 / 250 NS Inj 250 ML @ 15 mls/hr IV. 250 / 250 SIG ONCE AYDE Rx#:[id number] Oral 240 / 240 Intake (Blood Product) Amt 225 / 225 Plasma Thawed 5 Day Acda Unit 225 / 225 [id number] Other: # Voids 6 2 - Constitutional no acute distress - Routine HEENT Exam Head: Present: normocephalic, atraumatic - Routine Respiratory Exam Absent: accessory muscle use - Routine Abdominal Exam Present: soft, normoactive bowel sounds, distended. Absent: tenderness - Routine Skin Exam Present: dry, warm - Routine Neurological Exam Present: alert, oriented X3 <Vivienne Quiros - Last Filed: 12/15/17 15:27> Vital signs: Vital Signs 12/15/17 00:00 12/15/17 04:00 12/15/17 08:00 Temperature 99.3 F 98.5 F 98.2 F Pulse Rate 70 71 70 Respiratory Rate 18 18 14 Blood Pressure 111/62 95/51 L 109/53 L Pulse Oximetry 98 92 L 92 L 12/15/17 12:00 12/15/17 16:00 12/15/17 20:00 Temperature 98.2 F 98.7 F 97.7 F Pulse Rate 69 70 70 Respiratory Rate 16 16 18 Blood Pressure 94/53 L 92/53 L 91/52 L Pulse Oximetry 92 L 93 L 92 L Intake & Output 12/15/17 12/15/17 12/16/17 06:59 18:59 06:59 Intake Total 250 / 250 800 / 800 250 / 250 Balance 250 / 250 800 / 800 250 / 250 Intake: IV 250 / 250 250 / 250 Heparin/D5W 25,000 U/250 mL 25, 250 / 250 000 unit In 250 ml @ 1,000 UNITS/HR 10 mls/hr IV.CONT TITRATE PRN Rx#:[id number] NS Inj 250 ML @ 15 mls/hr IV. 250 / 250 SIG ONCE AYDE Rx#:[id number] Oral 800 / 800 Other: # Voids 2 5 <Loki Joshi E - Last Filed: 12/15/17 23:02> Results - Labs CBC & Chem 7: 12/14/17 06:56 12/13/17 11:15 Laboratory Results - last 24 hr 12/14/17 12/15/17 12/15/17 21:54 03:57 11:05 PT 14.4 H INR 1.4 APTT 44.8 H D 67.9 H D 81.8 H D <Vivienne Quiros - Last Filed: 12/15/17 15:27> - Labs CBC & Chem 7: 12/14/17 06:56 12/13/17 11:15 Laboratory Results - last 24 hr 12/14/17 12/15/17 12/15/17 21:54 03:57 11:05 PT 14.4 H INR 1.4 APTT 44.8 H D 67.9 H D 81.8 H D 12/15/17 15:55 PT INR APTT 61.4 H D <Loki Joshi - Last Filed: 12/15/17 23:02> Assessment and Plan - Plan Assessment: - Coumadin toxicity with complaints of black, tarry stools with reported history of Pepto Bismol use- INR reversed- pt on Heparin gtt due to high risk of clotting S/P EGD and colonoscopy yesterday EGD --> Short segment Haines's. Small hiatal hernia. 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 Pt with no further bleeding. Denies nausea, vomiting, abdominal pain. States some abdominal bloating after GI procedures. Plan: EGD in 2 years Colonoscopy in 5 years OK for anticoagulation from a GI standpoint Continue Pantoprazole Pt should follow up with GI after DC (states she is moving to [place] this weekend) Pt has been seen and examined by myself and Dr. Joshi and this note is written on his behalf <Vivienne Quiros - Last Filed: 12/15/17 15:27> - Attending Attestation Patient seen and examined Agree with above Continue with current supportive care Monitor labs Not much to add from a GI perspective Patient to follow-up with GI post discharge We will sign off <Loki Joshi - Last Filed: 12/15/17 23:02>
[2017-12-15] MEDS: Heparin Drip 25,000 UNIT/250 ML BAG IV.CONT PRN (21:06)
[2017-12-16 07:17] LABS: Hematocrit 43.8 % (35.0-46.0); Hemoglobin 14.6 gm/dL (11.6-15.3); Mean Corpuscular HGB Conc 33.3 % (32.0-36.0); Mean Corpuscular Hemoglobin 32.7 pg (27.0-34.0); Mean Corpuscular Volume 98.1 fL (80.0-100.0); Mean Platelet Volume 11.7 fL (7.0-11.0); Platelet Count 129 th/mm3 (150-450); Red Blood Count 4.46 mil/mm3 (4.00-5.30); Red Cell Distribution Width 16.2 % (11.6-17.2); White Blood Count 5.9 th/mm3 (4.0-11.0)
[2017-12-16 07:42] LABS: Activated Partial Thrombo Time 46.9 sec (24.3-30.1); INR 1.4 Ratio; Prothrombin Time 13.7 sec (9.8-11.6)
[2017-12-16 08:30] VITALS: BP 113/63; PULSE 70; RESP 18; TEMP 98.4; O2SAT 98
--- NOTE | 2017-12-16 10:22 | P.DS ---
Date of admission: 12/13/17 13:36 Primary care physician: Rafael Lockhart MD Brief History from admission: HPI from the admitting physician: Patient is a 72-year-old female with a history of a mitral valve replacement and congestive heart failure currently on warfarin. She had several days of diarrhea dyspepsia and was not eating well. Then she developed black stools. She developed diarrhea and took Pepto-Bismol. She noted that stool became black. Family doctor recommend that she keep an eye on it given that she had just taken the Pepto-Bismol. She then took her weekly INR check and noted that her INR was above 8. She came to the emergency room. She is Hemoccult positive on exam in the emergency room and her INR was 10.5. Patient has not had any further dark stools. She notes no bright red blood per rectum no hematemesis. Blood pressure and hemoglobin are stable. Patient is recommended for observation due to gas intestinal bleeding. Update on day of discharge: 12/17/27. Patient reports she is feeling great. She wants to go home. She states she can monitor her INR at home with her PCP. DS: Diagnosis - Discharge Diagnosis (1) Mitral valve replaced Status: Acute (2) GI bleed Status: Acute (3) Supratherapeutic INR Status: Acute (4) CHF (congestive heart failure) Status: Acute DS: Medications - Discharge Medications Prescriptions: carvedilol [Coreg] 6.25 mg PO BID #60 tab carvedilol 6.25 mg PO BID #60 tab enoxaparin [Lovenox] 60 mg SUB-Q Q12H #10 dose DS: Summary Hospital Course: 72-year-old female admitted and treated for the following: Melena -Patient has been on Warfarin. Status post reversal with vitamin K and FFP -Patient underwent EGD and colonoscopy which revealed short segment Haines's, small hiatal hernia, numerous benign-appearing gastric polyps, erythema in descending colon possible bowel trauma -GI bleeding appears to have resolved. Patient will continue PPI. Outpatient follow-up with GI. Mitral valve replaced: - Needs to be anticoagulated. INR currently subtherapeutic. initially bridged with Heparin/coumadin - Patient was switched to Lovenox/Coumadin on discharge. She will continue to monitor INR at home in coordination with PCP and stop Lovenox once INR therapeutic at 2.5-3.5 stable systolic chronic HF -continue home meds. Patient was seen by Cardiology. Coreg added. - Time Spent with Patient Total time spent providing and/or coordinating discharge services: Greater than 30 minutes - Quality: VTE Deep Vein Thrombosis/Pulmonary Embolism Present on Admission: No Exam Vital signs: Vital Signs 12/15/17 12:00 12/15/17 16:00 12/15/17 20:00 Temperature 98.2 F 98.7 F 97.7 F Pulse Rate 69 70 70 Respiratory Rate 16 16 18 Blood Pressure 94/53 L 92/53 L 91/52 L Pulse Oximetry 92 L 93 L 92 L 12/16/17 00:00 12/16/17 04:00 12/16/17 08:00 Temperature 99.2 F 98.3 F 98.4 F Pulse Rate 72 61 70 Respiratory Rate 18 16 18 Blood Pressure 115/57 L 103/63 113/63 Pulse Oximetry 92 L 92 L 98 Intake & Output 12/15/17 12/16/17 12/16/17 18:59 06:59 18:59 Intake Total 800 / 800 250 / 250 Balance 800 / 800 250 / 250 Intake: IV 250 / 250 Heparin/D5W 25,000 U/250 mL 25, 250 / 250 000 unit In 250 ml @ 1,000 UNITS/HR 10 mls/hr IV.CONT TITRATE PRN Rx#:[id number] Oral 800 / 800 Other: # Voids 5 2 Narrative: GENERAL: Elderly female in no acute distress. CARDIOVASCULAR: Normal rate and regular rhythm RESPIRATORY: Good respiratory efforts. Breath sounds equal and clear to auscultation bilaterally. GASTROINTESTINAL: Abdomen soft, non-tender, non-distended. Normal active bowel sounds MUSCULOSKELETAL: Extremities without cyanosis, or edema. NEURO: Alert & Oriented x4 to person, place, time, situation. Moves all ext x4 PSYCH: Appropriate mood and affect. Results Procedures completed during hospitalization: EGD and Colonoscopy Pending studies at discharge: Pending at discharge 12/14/17 07:55 Surgical [PTH] Routine Labs on day of discharge: Labs from last 24 hours 12/16/17 12/16/17 12/15/17 05:24 05:24 22:58 WBC 5.9 RBC 4.46 Hgb 14.6 Hct 43.8 MCV 98.1 MCH 32.7 MCHC 33.3 RDW 16.2 Plt Count 129 L MPV 11.7 H PT 13.7 H INR 1.4 APTT 46.9 H 47.2 H D Crossmatch Bld Prod Order Comment 12/15/17 12/15/17 12/13/17 15:55 11:05 11:15 WBC RBC Hgb Hct MCV MCH MCHC RDW Plt Count MPV PT INR APTT 61.4 H D 81.8 H D Crossmatch See Detail Bld Prod Order Comment - Impressions ITS Impressions Abdomen/Pelvis CT 12/13/17 12:56 CONCLUSION: Colonic diverticuli, tiny left pleural effusion and chronic 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 Discharge Plan - Discharge Disposition Patient Disposition: 01 Discharge Home - Discharge Condition Condition: Stable - Discharge Order Discharge Orders: Discharge Order (Routine); Ordered 12/16/17 Ordered By: Adonis Islas - Physicians Team Primary Care Provider: Rafael Lockhart Attending Provider: Adonis Islas Other Providers: Maribell Verma MD ; Froylan Das MD
[2017-12-16] MEDS: Carvedilol 6.25 MG Tablet PO SCH (10:30)
[2017-12-16] MEDS: Furosemide 40 MG Tablet PO SCH (10:31)
[2017-12-16] MEDS: Spironolactone 25 MG Tablet PO SCH (10:38)
[2017-12-16] MEDS: Ramipril 5 MG Capsule PO SCH (10:39)
[2017-12-16] MEDS ORDERED: Enoxaparin Inj 60 MG/0.6 ML Syringe SQ SCH (11:00)
== END 2017-12-16 11:41 | disposition home or self-care (01) ==
LOC: PHEDA 10:24 → N07 10:24 → PHED 10:24 → PHEDA 14:43 → PH3 14:44 → N07 19:58
PROVIDERS: ADMIT Family Medicine; ATTEND Family Medicine